=== PATIENT | male | born 1970 | race Caucasian/White ===

== ENCOUNTER 2021-08-19 19:12 | Emergency (ER) | payer OTHER, SELFPAY ==
--- NOTE | 2021-08-19 20:39 | HMH.EDUTC ---
[facility] Disposition Clinical Impression: Low back strain Qualifiers: Encounter type: initial encounter Qualified Code(s): S39.012A - Strain of muscle, fascia and tendon of lower back, initial encounter Low back pain Qualifiers: Chronicity: unspecified Back pain laterality: midline Sciatica presence: with sciatica Sciatica laterality: bilateral sciatica Qualified Code(s): M54.41 - Lumbago with sciatica, right side Degenerative disk disease Qualifiers: Spinal region: lumbar Qualified Code(s): M51.36 - Other intervertebral disc degeneration, lumbar region Disposition: Home, Self-Care Condition on Discharge: Good Instructions: Low Back Pain, DI for Low Back Pain Additional Instructions: Go home and rest. It would be best if you rested tomorrow too. No heavy lifting. No twisting. Take the oral medications as directed. The muscle relaxer (cyclobenzaprine--Flexeril) will make you drowsy, so don't drive or operate heavy machinery after taking it. Don't start the oral steroids (medrol dose pack) until tomorrow, since you had the shots in here today. Follow up with your regular doctor. GO TO THE ER FOR ANY WORSENING SYMPTOMS OR CONCERN, ESPECIALLY BOWEL OR BLADDER ISSUES, SADDLE AREA NUMBNESS, FEVER, ETC Prescriptions: Cyclobenzaprine HCl [Cyclobenzaprine 10mg Tab] 10 mg PO BIDP PRN #20 tab PRN Reason: Muscle Spasm Transmission Status: Received by [facility] methylPREDNISolone [Medrol] 4 mg PO DIRECTED 6 Days #21 packet Transmission Status: Received by [facility] Referrals: Chetan Benoit [Primary Care Provider] - Time of Disposition: 21:05 Medical Decision Making - Medical Records Medical records reviewed: No: I reviewed the patient's medical records. - Dixon Inquiry Pt receiving controlled substance: No Vital Signs: 08/19/21 20:46 08/19/21 21:09 Temperature 98.2 F 98.2 F Temperature Source Oral Pulse Rate 74 Pulse Rate [Left] 74 Respiratory Rate 18 18 Blood Pressure 125/80 Blood Pressure [Right Arm] 125/80 Blood Pressure Mean [Right Arm] 95 02 Sat by Pulse Oximetry 96 Orders (Tests/Meds): ED MEDICATIONS Discontinued Medications Generic Name Dose Route Start Last Admin Trade Name Freq PRN Reason Stop Dose Admin Ketorolac Tromethamine 60 mg 08/19/21 20:49 08/19/21 20:58 Ketorolac 60mg/2ml Vial IM 08/19/21 20:50 60 mg ONCE ONE Administration Methylprednisolone Sodium Succinate 125 mg 08/19/21 20:49 08/19/21 20:59 Methylprednisolone Sod Succ 125mg Vial IM 08/19/21 20:50 125 mg ONCE ONE Administration [facility] HPI - General Stated complaint: back pain Time Seen by Provider: 08/19/21 20:39 - History of Present Illness Provider Complaint: He states that he had to shovel a bunch of snow and ice 4 days ago. Since then he has had low back pain that radiates down both his legs. He has a history of low back pain and degenerative disk disease. He denies any injury, recent falls, recent mva, etc. He denies any bowel or bladder issues. - Related Data Previous Rx's Medication Instructions Recorded Cyclobenzaprine HCl 10 mg PO BIDP PRN #20 tab 08/19/21 [Cyclobenzaprine 10mg Tab] methylPREDNISolone [Medrol] 4 mg PO DIRECTED 6 Days #21 08/19/21 packet Allergies Allergy/AdvReac Type Severity Reaction Status Date / Time No Known Allergies Allergy Verified 08/19/21 20:49 [facility] History - Hepatitis A Screen Attestation statement:: This patient has been screened for Hepatitis A risk factors. I have reviewed the patient's past medical history: Yes ROS Obtained: Yes All systems reviewed & no additional complaints - Constitutional Constitutional: Denies chills, Denies fever(s) - Eyes Eyes: Denies eye discharge - ENT Ears, Nose, Mouth, and Throat: Denies dizziness, Denies otalgia, Denies sore throat - Cardiovascular Cardiovascular: Denies chest pain - Gastrointestinal Gastrointestingal: D
[2021-08-19 20:46] VITALS: BP 125/80; PULSE 74; RESP 18; TEMP 36.8; O2SAT 96; BMI 25.8
[2021-08-19 21:09] VITALS: BP 125/80; PULSE 74; RESP 18; TEMP 36.8
== END 2021-08-19 21:11 | disposition home or self-care (01) ==
LOC: UTC 19:19
PROVIDERS: Emergency Provider Nurse Practitioner Family; PCP Internal Medicine Cardiovascular Disease
DX: S39.012A Strain of muscle, fascia and tendon of lower back, initial encounter (principal); X50.9XXA Other and unspecified overexertion or strenuous movements or postures, initial encounter; M54.41 Lumbago with sciatica, right side
CPT/HCPCS: 96372; 99202; G0463

== ENCOUNTER 2022-11-29 12:45 | Emergency (ER) | payer SELFPAY ==
[2022-11-29 12:45] VITALS: BP 133/87; PULSE 90; RESP 18; TEMP 36.8; O2SAT 98; BMI 25.2
--- NOTE | 2022-11-29 12:56 | EXP.UTC ---
Discharge Plan Disposition Patient Disposition: Home, Self-Care Condition: Good Prescriptions Prescriptions: New methylprednisolone 4 mg Tablets,Dose Pack 4 mg PO DIRECTED Qty: 21 0RF No Action atorvastatin 10 mg tablet 10 mg PO DAILY Label Comments: TAKE 1 TABLET BY MOUTH DAILY. tizanidine 4 mg tablet 4 mg PO TID Label Comments: TAKE 1 TABLET BY MOUTH 3 TIMES DAILY. amlodipine 5 mg tablet 5 mg PO DAILY Label Comments: TAKE 1 TABLET BY MOUTH DAILY. gabapentin 300 mg capsule 300 mg PO TID Label Comments: TAKE 1 CAPSULE BY MOUTH 3 TIMES DAILY. aspirin 81 mg tablet,chewable 1 tab PO DAILY Label Comments: TAKE 1 TABLET BY MOUTH DAILY. lisinopril 5 mg tablet 5 mg PO DAILY Label Comments: TAKE 1 TABLET BY MOUTH DAILY. Referrals Follow up/Referrals: Chetan Benoit [Primary Care Provider] - See instructions Activity Restrictions/Add. Instructions Additional Instructions/Restrictions: Rest the extremity, Elevate the extremity as tolerated while you are resting. Don't start the oral steroids until tomorrow, since you had the shot here today. Follow up with Dr. Marx (podiatry). I put in a referral but you need to call her office and schedule an appointment. Follow up with your regular doctor. GO TO THE ER FOR ANY WORSENING SYMPTOMS Clinical Impressions Clinical Impression: Acute left ankle pain Instructions Patient Instructions: MALISSA Mccain for Gout Discharge ED Provider: Edward Naylor [facility] General Stated complaint: L foot pain, no accident Mode of Arrival: Wheelchair Source of Information: Patient Limitations: No Limitations Time Seen by Provider: 11/29/22 12:56 History of Present Illness Provider Complaint: pt c/o L foot pain, reports no accident. Pt report pain x2 days, states think my gout is acting up . Swelling noted to foot and ankle, small amount of redness noted around L ankle. Pulses + Related Data Home Medications Medication Instructions Recorded Confirmed amlodipine 5 mg tablet 5 mg PO DAILY . 11/29/22 11/29/22 aspirin 81 mg chewable tablet 1 tab PO DAILY . 11/29/22 11/29/22 atorvastatin 10 mg tablet 10 mg PO DAILY . 11/29/22 11/29/22 gabapentin 300 mg capsule 300 mg PO TID . 11/29/22 11/29/22 lisinopril 5 mg tablet 5 mg PO DAILY . 11/29/22 11/29/22 tizanidine 4 mg tablet 4 mg PO TID . 11/29/22 11/29/22 Previous Rx's Medication Instructions Recorded methylprednisolone 4 mg tablets in 4 mg PO DIRECTED #21 tabs 11/29/22 a dose pack Allergies Allergy/AdvReac Type Severity Reaction Status Date / Time No Known Allergies Allergy Verified 11/29/22 13:07 [facility] Disclaimer: The information contained in this section may have been updated after the patient was seen, as this information can be updated by other users. Social History Smoking Status: Former smoker alcohol intake: never current occupational status: employed Travel in the last 8 weeks: None ROS Obtained: Yes All systems reviewed & no additional complaints except as documented Constitutional Constitutional: Denies chills and Denies fever(s) Eyes Eyes: Denies eye discharge ENT Ears, Nose, Mouth, and Throat: Denies dizziness, Denies otalgia and Denies sore throat Cardiovascular Cardiovascular: Denies chest pain Respiratory Respiratory: Denies shortness of breath, Denies chest congestion, Denies cough, Denies stridor and Denies wheezing Gastrointestinal Gastrointestingal: Denies nausea or vomiting Musculoskeletal Musculoskeletal: Reports as per HPI Integumentary/Breasts Skin/Breast: Denies rash Neurologic Neurologic: Denies dizziness and Denies paresthesias Allergic/Immunologic Allergic/Immunologic: Denies wheezing Physical Exam General General appearance: alert and in no apparent distress Head Head exam: atraumatic, normocephalic and no
--- NOTE | 2022-11-29 13:02 | XR_ITS ---
PROCEDURE INFORMATION: Exam: XR Left Foot Exam date and time: 11/29/2022 1:01 PM Age: 52 years old Clinical indication: Pain; Swelling or effusion of joint; Ankle and foot; Left; Additional info: Fall TECHNIQUE: Imaging protocol: Radiologic exam of the left foot. Views: 3 or more views. COMPARISON: CR Ankle L 11/29/2022 12:59 PM FINDINGS: Bones/joints: Osseous structures are intact. No fracture, dislocation or malalignment. 1.5 cm mixed radiolucent sclerotic bone lesion along the medial aspect of the navicular bone. Mild degenerative changes 1st MTP joint with small subchondral cyst. Remaining joint surfaces are preserved. Soft tissues: Normal. IMPRESSION: 1. No acute bony abnormalities. 2. 1.5 cm bone lesion medial aspect navicular bone difficult to further characterize. Recommend either follow-up nonemergent CT exam of the left foot or repeat radiographs in 3-6 months for further surveillance.
--- NOTE | 2022-11-29 13:02 | XR_ITS ---
PROCEDURE INFORMATION: Exam: XR Left Ankle Exam date and time: 11/29/2022 12:59 PM Age: 52 years old Clinical indication: Pain; Swelling or effusion of joint; Ankle and foot; Left; Additional info: Fall TECHNIQUE: Imaging protocol: Radiologic exam of the left ankle. Views: 3 or more views. COMPARISON: No relevant prior studies available. FINDINGS: Bones/joints: Osseous structures and joint surfaces are intact. No fracture or malalignment. Soft tissues: Normal. IMPRESSION: Negative left ankle.
[2022-11-29 13:04] VITALS: BP 150/97; PULSE 95; RESP 18; TEMP 36.8; O2SAT 99; BMI 25.4
[2022-11-29 14:07] VITALS: BP 150/97; PULSE 95; RESP 18; TEMP 36.8; O2SAT 99
== END 2022-11-29 14:06 | disposition home or self-care (01) ==
PROVIDERS: Emergency Provider Nurse Practitioner Family; PCP Internal Medicine Cardiovascular Disease
DX: M25.572 Pain in left ankle and joints of left foot (principal)
CPT/HCPCS: 73610; 73630; 96372; 99212; 99214; G0463

== ENCOUNTER 2024-02-13 16:32 | Observation (INO) | payer MEDICAID, SELFPAY ==
[2024-02-13] VITALS (11 sets, daily range): BP systolic 103–164; BP diastolic 57–98; PULSE 56–92; RESP 11–22; TEMP 36.8–36.9; O2SAT 95–100; BMI 27.2; BMI 27.0
--- NOTE | 2024-02-13 16:32 | ECG_ITS ---
APPROVED REPORT Exam: Resting ECG HR:93 bpm ECG Measurements Heart Rate 93 AXES MS 145 P 67 QRSd 90 QRS 40 QT 337 T 46 QTc 388 Conclusion SINUS RHYTHM NORMAL ECG Electronically signed by : SUZANNE NICHOLAS, 02/14/2024 00:26:08
--- NOTE | 2024-02-13 16:34 | XR_ITS ---
PROCEDURE INFORMATION: Exam: XR Chest Exam date and time: 02/13/2024 4:41 PM Age: 53 years old Clinical indication: Dyspnea; Additional info: Cp, dyspnea TECHNIQUE: Imaging protocol: Radiologic exam of the chest. Views: 1 view. COMPARISON: No relevant prior studies available. FINDINGS: Lungs: No consolidation. Pleural spaces: No pleural effusion. No pneumothorax. Heart/Mediastinum: No cardiomegaly. Calcified atherosclerotic changes of the thoracic aorta. Bones/joints: No acute findings. IMPRESSION: No acute pulmonary findings.
--- NOTE | 2024-02-13 16:36 | ED_ITS ---
Discharge Plan Disposition Patient Disposition: Admitted Chief Complaint: Chest Pain Clinical Impressions Clinical Impression: Angina pectoris, unstable, Acute dyspnea, Hypokalemia Discharge ED Provider: Isiah Burton General Chief Complaint: Chest Pain Stated Complaint: CP Time Seen by Provider: 02/13/24 16:33 History of Present Illness HPI narrative: Patient is a 53-year-old male past medical history of hypertension, no coronary history who presents emergency department for evaluation of chest pain. Onset was acute, 3 hours prior to arrival, substernal while patient was at rest. It is not modifiable, moderate in intensity causing her to present here for continued evaluation. Patient has a cough in the morning every morning that is no different than normal. He is a chronic smoker. No other acute complaints at this time. No surgical history in the chest. Related Data Home Medications ?Medication ?Instructions ?Recorded ?Confirmed amlodipine 5 mg tablet 5 mg PO DAILY . 11/29/22 11/29/22 aspirin 81 mg chewable tablet 1 tab PO DAILY . 11/29/22 11/29/22 atorvastatin 10 mg tablet 10 mg PO DAILY . 11/29/22 11/29/22 gabapentin 300 mg capsule 300 mg PO TID . 11/29/22 11/29/22 lisinopril 5 mg tablet 5 mg PO DAILY . 11/29/22 11/29/22 tizanidine 4 mg tablet 4 mg PO TID . 11/29/22 11/29/22 Previous Rx's ?Medication ?Instructions ?Recorded methylprednisolone 4 mg tablets in 4 mg PO DIRECTED #21 tabs 11/29/22 a dose pack Allergies Allergy/AdvReac Type Severity Reaction Status Date / Time No Known Allergies Allergy Verified 02/13/24 16:47 [facility] Disclaimer: The information contained in this section may have been updated after the patient was seen, as this information can be updated by other users. Social History (Updated 11/29/22 @ 18:35 by Edward Naylor APRN) Smoking Status: Current every day smoker alcohol intake: never current occupational status: employed Travel in the last 8 weeks: None ROS Obtained: Yes Systems reviewed as appropriate & no additional complaints except as documented Physical Exam General General appearance: alert and in no apparent distress Head Head exam: atraumatic and normocephalic Eye Eye exam: Present PERRL and EOMI ENT ENT exam: Present mucous membranes moist Neck Neck exam: Present normal inspection Chest Chest inspection: Present normal inspection and symmetric chest wall rise Respiratory Respiratory exam: Present normal lung sounds bilaterally; Absent respiratory distress Cardiovascular Cardiovascular exam: Present regular rate and normal rhythm Abdominal Exam Abdominal exam: Present soft; Absent tenderness Extremities Exam Extremities exam: Present normal inspection Neurological Exam Neurological exam: Present alert Psychiatric Psychiatric exam: Present normal affect Skin Skin exam: Present warm and dry HEART Score HEART Score HEART Score assessment performed?: Yes History (anamnesis): Highly suspicious ECG: Normal Age: 45-65 years Risk factors: 1-2 risk factors Troponin: </= normal limit HEART Score: 4 Critical Care Critical Care Time Critical Care Time: No Medical Decision Making Dixon Inquiry Pt receiving controlled substance: No Vital Signs Vital Signs: 02/13/24 16:39 02/13/24 17:01 02/13/24 17:30 Temperature 98.5 F Temperature Source Oral Pulse Rate 73 76 Pulse Rate [Left] 92 H Respiratory Rate 14 11 L 11 L Blood Pressure 103/57 L 132/90 Blood Pressure [Right Arm] 164/98 H Blood Pressure Mean [Right Arm] 120 Blood Pressure Source [Right Arm] Automatic Cuff Blood Pressure Position [Right Arm] Sitting 02 Sat by Pulse Oximetry 100 97 97 Oxygen Delivery Method Room Air Room Air Room Air 02/13/24 18:00 02/13/24 18:30 02/13/24 19:00 Temperature Temperature Source Pulse Rate 71 65 68 Pulse Rate [Left] Respiratory Rate 22 15 15 Blood Pressure 124/95 H 138/91 H 145/95 H Blood Pressure [Right Arm] Blood Pressure Mean [Right Arm] Blood Pressure Source [Right Arm] Blood Pressure Position [Right Arm] 02 Sat by Pulse Oximetry 97 97 95 Oxygen Delivery Method Room Air Room Air 02/13/24 19:30 02/13/24 20:00 Temperature Temperature Source Pulse Rate 61 72 Pulse Rate [Left] Respiratory Rate 16 16 Blood Pressure 130/94 H 139/96 H Blood Pressure [Right Arm] Blood Pressure Mean [Right Arm] Blood Pressure Source [Right Arm] Blood Pressure Position [Right Arm] 02 Sat by Pulse Oximetry 95 95 Oxygen Delivery Method Lab Data Labs: Lab Results 02/13/24 16:38: WBC 8.5, RBC 4.68, Hgb 15.4, Hct 46.7, MCV 99.9 H, MCH 32.8 H, MCHC 32.8, RDW 14.0, Plt Count 265, MPV 8.2, Neut % (Auto) 73.9, Lymph % (Auto) 18.2, [place] % (Auto) 2.1, Eos % (Auto) 4.7, Baso % (Auto) 1.1, Neut # (Auto) 6.3, Lymph # (Auto) 1.5, [place] # (Auto) 0.2, Eos # (Auto) 0.4, Baso # (Auto) 0.1, D- Dimer 0.38, Sodium 140, Potassium 3.2 L, Chloride 106, Carbon Dioxide 25, Anion Gap 12.2, BUN 9, Creatinine 0.70, Estimated Creat Clear 147, Estimated GFR 118, Est GFR ( Amer) 142, Glucose 169 H, Calcium 9.1, Total Bilirubin 0.6, AST 34, ALT 29, Alkaline Phosphatase 72, Troponin I < 0.01, NT-Pro-B Natriuret Pep 32.3, Total Protein 6.7, Albumin 3.9, Globulin 2.8, Albumin/Globulin Ratio 1.4 02/13/24 19:35: Troponin I < 0.01 02/13/24 16:38 02/13/24 16:38 Response Orders (Tests/Meds): ED MEDICATIONS Generic Name Dose Route Start Last Admin Trade Name Freq PRN Reason Stop Dose Admin Nitroglycerin 0.4 mg 02/13/24 16:34 02/13/24 16:50 Nitroglycerin 0.4mg Sl Tablet SL 03/14/24 16:33 0.4 mg Q5MINP PRN Administration Chest Pain Discontinued Medications Generic Name Dose Route Start Last Admin Trade Name Freq PRN Reason Stop Dose Admin Aspirin 324 mg 02/13/24 16:34 02/13/24 16:50 Aspirin 81mg Chewable Tablet PO 02/13/24 16:35 324 mg ONCE ONE Administration Belladonna Alkaloids 60 ml 02/13/24 16:34 02/13/24 16:50 Belladonna Alkaloids 60 Ml Ml PO 02/13/24 16:35 60 ml ONCE ONE Administration Morphine Sulfate 4 mg 02/13/24 16:34 02/13/24 16:50 Morphine 4mg/Ml Syringe IV 02/13/24 16:35 4 mg ONCE ONE Administration Morphine Sulfate 4 mg 02/13/24 19:42 02/13/24 19:47 Morphine 4mg/Ml Syringe IV 02/13/24 19:43 4 mg ONCE ONE Administration Potassium Chloride 40 meq 02/13/24 17:10 02/13/24 17:13 Potassium Chloride 20meq Tab PO 02/13/24 17:11 40 meq ONCE ONE Administration ORDERS Category Date Time Status CXR --portable [XR chest portable] Stat Exams 02/13/24 16:34 Completed BNP [NT Pro Brain Natriuretic Pep.] Stat Lab 02/13/24 16:38 Completed CBC w/Auto Diff [Complete Blood Count Auto Diff] Stat Lab 02/13/24 16:38 Completed CMP [Comprehensive Metabolic Panel] Stat Lab 02/13/24 16:38 Completed D-Dimer Stat Lab 02/13/24 16:38 Completed Trop I [Troponin I] Stat Lab 02/13/24 16:38 Completed Troponin I Q3H Lab 02/13/24 19:35 Completed Troponin I Q3H Lab 02/13/24 22:45 Ordered ECG Data Tracing #1: ECG Narrative: Independently interpreted by me rate is 93, rhythm is regular, axis is normal, no ST elevation in anatomical contiguous leads, QTc 388. MDM Narrative Medical Decision Narrative: In summary patient is a 53-year-old male with past medical history described above who presents emergency department for evaluation of chest pain. Patient is hemodynamically stable nontoxic-appearing upon arrival, afebrile. Differential diagnosis includes ACS, noncardiac chest pain, pulmonary embolism, aortic dissection, among others. Workup will be conducted with hematologic labs, chest x-ray, EKG, troponin, D-dimer. Initial inventions include aspirin, morphine, nitroglycerin, GI cocktail. Hematologic labs reviewed by me, no leukocytosis or anemia, D-dimer excludes pulmonary embolism and low risk aortic dissection, there is some mild hypokalemia which will be repleted orally. Chest x-ray informally interpreted by me, no acute lobar opacities or large pneumothorax, no significant cephalization of vessels. Formal read shows no acute pathology. Initial troponin undetectably low. Upon repeat evaluation patient had worsening chest pain although serial troponins are undetectably low patient has unstable angina and will benefit from admission and cardiology input. Case discussed with hospital medicine regarding management patient be admitted to their service for continued evaluation at this time.
[2024-02-13 16:48] LABS: Basophils # 0.1 K/mm3 (0-0.2); Basophils % 1.1 % (0.1-2.0); Eosinophils # 0.4 K/mm3 (0.0-0.4); Eosinophils % 4.7 % (0.1-12.0); Hematocrit 46.7 % (42.0-52.0); Hemoglobin 15.4 g/dL (14.1-18.0); Lymphocytes # 1.5 K/mm3 (0.7-4.5); Lymphocytes % 18.2 % (10-50); Mean Corpuscular HGB Conc 32.8 g/dL (31.8-35.4); Mean Corpuscular Hemoglobin 32.8 pg (27.0-31.2); Mean Corpuscular Volume 99.9 fl (80-94); Mean Platelet Volume 8.2 fl (7.4-10.4); Monocytes # 0.2 K/mm3 (0.1-1.0); Monocytes % 2.1 % (1.7-9.3); Neutrophils # 6.3 K/mm3 (1.8-7.8); Neutrophils % 73.9 % (37.0-80.0); Platelet Count 265 K/mm3 (142-424); Red Blood Count 4.68 M/mm3 (4.60-6.20); White Blood Count 8.5 K/mm3 (4.8-10.8)
[2024-02-13] MEDS: ASPIRIN 81MG CHEWABLE TABLET 324 MG PO (16:50)
[2024-02-13] MEDS: BELLADONNA ALKALOIDS 60 ML ML PO (16:50)
[2024-02-13] MEDS: MORPHINE 4MG/ML SYRINGE 4 MG IV ×2 (16:50→19:47)
[2024-02-13] MEDS: NITROGLYCERIN 0.4MG SL TABLET 0.4 MG SL ×2 (16:50→22:18)
--- OUTSIDE RECORDS SUMMARY | 2024-02-13 16:51 | XMS_ITS | Continuity of Care Document ---
Author Organization [facility] Address [address] [place] [address] Phone Care Team Providers Care Senior Tax Accountant Name Role Phone Anrde Max MD Unavailable Unavailable Allergies, Adverse Reactions, Alerts Substance Reaction Status Criticality codeine Active No Information Medications Medication Instructions Dosage Effective Dates (start - stop) Status Comments ADVIL (unknown strength) use as directed Not Available - Active Procedures Procedure Date OFFICE CONSULTATION Advance Directives Directive Yes / No Effective Date File Name Resuscitation Not Answered N/A N/A Life Support Not Answered N/A N/A Intubation Not Answered N/A N/A Antibiotics Not Answered N/A N/A IV Fluid Support Not Answered N/A N/A Tube Feed Not Answered N/A N/A Other Directive N/A N/A WARNING:The information contained in this section is historical and is provided for information only and does not constitute a legal document or any assurance that the information is still accurate. Please verify the information with the boyce of the legal document before using it for clinical purposes. Encounters Encounter Description Practice Location Reason(s) For Visit Diagnoses Date Provider Providers Copied on Encounter OFFICE CONSULTATION [facility], [address] [place], [address], tel:[phone] [facility] [address] [place] [place], [place], [id number]. tel:[phone] Referring Provider: Zhao Romero, [address] [facility] [address], [place], [address]. tel:[phone] Family History Family Member Type Diagnosis Age At Onset Multiple Problem (finding) HBP Payers Payer name Insurance type Covered libertarian ID Authoriza tion(s) [employer] [id number] Social History Type Description Quantity Date Captured Comments Alcohol Use Details No Caffeine Use Details Unknown Tobacco Use Status No Information Smoking Status Current every day smoker Smoking Tobacco Use Details Cigarette: No Details Available Cigarette: No Details Available Sex Male Chief Complaint And Reason For Visit No Information Reason For Referral Reason For Referral No Information History Of Present Illness Encounter Date Complaint History Of Prese nt Illness No Information Functional Status Date Functional Assessmen t No Information Instructions Date Instruction Additional Infor mation - Return in PRN Related to See i mpression: general plan - [facility] - retrobulbar with white matter changes on mri. improving nicely at this point. recommended systemic neurologic evaluation. Related to See impression: general plan - [facility] - Educational materials provided:Primary Diagnosis. Related to See impression: general plan Assessments Type Assessment Date No Information Patient Care Teams Name Effective Dates (start - stop) Status Members No Information
[2024-02-13 16:55] LABS: Alanine Aminotransferase 29 U/L (12-78); Albumin Level 3.9 g/dl (3.5-5.0); Albumin/Globulin Ratio 1.4 (1.1-1.8); Alkaline Phosphatase 72 U/L (38-126); Anion Gap 12.2 mEq/L (5-15); Aspartate Amino Transferase 34 U/L (17-59); Bilirubin,Total 0.6 mg/dl (0.2-1.3); Blood Urea Nitrogen 9 mg/dl (9-20); Calcium 9.1 mg/dl (8.4-10.2); Carbon Dioxide 25 mmol/L (22.0-30.0); Chloride 106 mmol/L (98-107); Creatinine Clearance Estimated 147 mL/min (50-200); Estimated Glomerular Filt Rate 118 ml/min (>60); GFR (African American) 142 ML/MIN (>60); Globulin 2.8 g/dL (1.3-3.2); Glucose 169 mg/dl (74-100); Potassium 3.2 mmoL/L (3.5-5.1); Sodium 140 mmol/L (136-145); Total Protein,Serum 6.7 g/dl (6.3-8.2)
[2024-02-13 16:58] LABS: D-Dimer 0.38 ug/mL (0.0-0.5)
[2024-02-13] MEDS: POTASSIUM CHLORIDE 20MEQ TAB 40 MEQ PO (17:13)
[2024-02-13 17:23] LABS: Troponin I < 0.01 ng/ml (0.00-0.034)
--- NOTE | 2024-02-13 18:00 | PC.NURSE ---
Rounded on pt. Pt voiced no needs. Call light within reach.
[2024-02-13 19:25] LABS: NT Pro Brain Natriuretic Pep. 32.3 pg/mL (0-125)
--- NOTE | 2024-02-13 20:02 | PC.NURSE ---
House notified for admission
[2024-02-13 20:03] LABS: Troponin I < 0.01 ng/ml (0.00-0.034)
--- NOTE | 2024-02-13 20:26 | PC.NURSE ---
Patient arrived to floor via wheelchair from ED at 20:22.
--- NOTE | 2024-02-13 20:31 | P.HP_ITS ---
History of Present Illness *Admission Date: 02/13/24 *Reason for visit:: Onset of worsening shortness of air, and mid sternal chest pain *History of present illness: This 53-year-old male who is a longtime smoker of more than 40 years. Also noted for disability due to spinal pain neck and lower back using a cane to ambulate. Had been experiencing shortness of air over the last couple months that is getting worse. He notes that if he has a fan on in his face he does feel better but now it is not working. Also midsternal chest pain like a burning that goes down both arms tingling. Patient noted his primary care is Dr. Yao and [facility] Disclaimer: The information contained in this section may have been updated after the patient was seen, as this information can be updated by other users. Medical History History of back pain Hyperlipidemia Hypertension Social History Smoking Status: Current every day smoker smoking status start date: 1983 smoked: 39 quit status: not considering quitting alcohol intake: never substance use type: denies use current occupational status: unemployed and disabled Travel in the last 8 weeks: None household members: significant other marital status: life partner service: No [place] [facility]: No caffeine: Yes physical activity: walking Review of Systems Constitutional Constitutional: Reports as per HPI Comments: Patient states that just the increase in the shortness of air with now having the chest pain is what brought him in to be evaluated Eyes Eyes: Reports system reviewed and no additional complaints, except as documented ENT Ears, Nose, Mouth, and Throat: Reports system reviewed and no additional complaints, except as documented and Reports neck pain (Chronic neck pain) *Cardiovascular Cardiovascular: Reports as per HPI, Reports chest pain, Reports chest pain at rest, Reports chest pain with activity, Reports dyspnea and Reports dyspnea on exertion *Respiratory Respiratory: Reports system reviewed and no additional complaints, except as documented, Reports dyspnea and Reports dyspnea on exertion *Gastrointestinal Gastrointestinal: Reports system reviewed and no additional complaints, except as documented *Genitourinary Genitourinary: Reports system reviewed and no additional complaints, except as documented Comments: Denies any issues with bowels or bladder *Musculoskeletal Musculoskeletal: Reports as per HPI, Reports back pain (Chronic back pain) and Reports neck pain (Chronic neck pain) Integumentary/Breasts Skin/Breast: Reports system reviewed and no additional complaints, except as documented *Neurologic Neurologic: Reports system reviewed and no additional complaints, except as documented Psychiatric Psychiatric: Reports system reviewed and no additional complaints, except as documented and Reports as per HPI Comments: Patient is very sociable he denies any problems with mental health issues. And is a very good historian Endocrine Endocrine: Reports system reviewed and no additional complaints, except as documented Hematologic/Lymphatic Hematologic/Lymphatic: Reports system reviewed and no additional complaints, except as documented Allergic/Immunologic Allergic/Immunologic: Reports system reviewed and no additional complaints, except as documented Meds Home Medications and Allergies Home Medications ?Medication ?Instructions ?Recorded ?Confirmed ?Type amlodipine 5 mg tablet 5 mg PO DAILY 11/29/22 02/14/24 History aspirin 81 mg chewable tablet 81 mg PO DAILY 11/29/22 02/14/24 History gabapentin 300 mg capsule 300 mg PO TID 11/29/22 02/14/24 History atorvastatin 40 mg tablet 40 mg PO HS #30 tabs 02/14/24 Rx famotidine 20 mg tablet 20 mg PO DAILY 30 days #30 tabs 02/14/24 Rx lisinopril 20 mg tablet 20 mg PO DAILY #30 tabs 02/14/24 Rx New Prescriptions to Start Prescriptions: Edward Davis famotidine Edwadr Caputo lisinopril Edward Caputo Allergies Allergy/AdvReac Type Severity Reaction Status Date / Time No Known Allergies Allergy Verified 02/13/24 16:47 Exam Data for Last 24 hours Vital signs and Labs for Last 24 Hours: Temp Pulse Resp BP Pulse Ox O2 Del Method 98.2 F 73 19 136/96 H 95 Room Air 02/13/24 20:19 02/13/24 20:19 02/13/24 20:19 02/13/24 20:19 02/13/24 20:00 02/13/24 20:19 Laboratory Results - last 24 hr 02/13/24 16:38: WBC 8.5, RBC 4.68, Hgb 15.4, Hct 46.7, MCV 99.9 H, MCH 32.8 H, MCHC 32.8, RDW 14.0, Plt Count 265, MPV 8.2, Neut % (Auto) 73.9, Lymph % (Auto) 18.2, [place] % (Auto) 2.1, Eos % (Auto) 4.7, Baso % (Auto) 1.1, Neut # (Auto) 6.3, Lymph # (Auto) 1.5, [place] # (Auto) 0.2, Eos # (Auto) 0.4, Baso # (Auto) 0.1, D- Dimer 0.38, Sodium 140, Potassium 3.2 L, Chloride 106, Carbon Dioxide 25, Anion Gap 12.2, BUN 9, Creatinine 0.70, Estimated Creat Clear 147, Estimated GFR 118, Est GFR ( Amer) 142, Glucose 169 H, Calcium 9.1, Total Bilirubin 0.6, AST 34, ALT 29, Alkaline Phosphatase 72, Troponin I < 0.01, NT-Pro-B Natriuret Pep 32.3, Total Protein 6.7, Albumin 3.9, Globulin 2.8, Albumin/Globulin Ratio 1.4 02/13/24 19:35: Troponin I < 0.01 I & O for Last 24 hours: Intake & Output 02/10/24 02/11/24 02/12/24 02/13/24 23:59 23:59 23:59 23:59 Weight 86.183 kg Radiology Reports for the Last 24 Hours: Reviewe chest x-ray, no acute findings Constitutional Constitutional: no acute distress and obese Comments: Very pleasant patient to talk to. Forthcoming with history, in no acute distress at this point in time. *Routine HEENT Exam Head: Present normocephalic and atraumatic Eye: Present EOMI and PERRL ENT: Present mucous membranes moist *Routine Neck Exam Neck: Present supple Routine Chest/Breast/Axilla Exam Comments: No tenderness or discomfort found upon evaluation of chest *Routine Respiratory Exam Respiratory: Present normal respiratory effort Comments: Patient is a 40-year smoker but the lungs were completely clear with normal chest shape equal expansion both sides no abnormal breath sounds heard *Routine Cardiovascular Exam Cardiovascular: Present RRR, Normal S1 and Normal S2 *Routine Abdominal Exam Abdominal: Present soft and normoactive bowel sounds *Routine Rectal Exam Rectal:: deferred *Routine Genitalia Exam Genitalia:: deferred *Routine Extremities Exam Extremities: Present full ROM, pulses intact and normal capillary refill Routine Back/Spine/Pelvis Exam Back/Spine: Present full ROM and paraspinal tenderness (Chronic neck and lower back pain, ) *Routine Skin Exam Skin: Present intact, dry, warm and normal turgor *Routine Neurological Exam Neurological: Present alert, oriented X3, CN II-XII intact and normal reflexes Comments: Uses cane to ambulate but if this is related to his chronic back pain Routine Psychiatric Exam Psychiatric: Present normal affect, normal thought process, cooperative, good insight and good judgment H&P: Result Impressions 1. Recent onset of chest pain, need to rule out coronary artery disease related to inactivity and long-term smoking 2. Midsternal chest pain recent onset, to rule out acute versus past FL and have a cardiology consult Imaging and Cardiology Chest x-ray: Status: image reviewed by me Additional comments: No acute finding on chest x-ray heart of normal size Assessment and Plan *Assessment and plan (1) Acute dyspnea: Status: Acute Category: Medical Code(s): R06.00 - Dyspnea, unspecified (2) Angina pectoris, unstable: Status: Acute Category: Medical Code(s): I20.0 - Unstable angina (3) Degenerative disk disease: Status: Acute Qualifiers: Spinal region: lumbar Qualified Code(s): M51.36 - Other intervertebral disc degeneration, lumbar region Category: Medical (4) Low back pain: Status: Acute Qualifiers: Back pain laterality: midline Chronicity: unspecified Sciatica laterality: bilateral sciatica Sciatica presence: with sciatica Qualified Code (s): M54.41 - Lumbago with sciatica, right side; M54.42 - Lumbago with sciatica, left side Category: Medical Code(s): M54.50 - Low back pain, unspecified (5) Hypokalemia: Status: Acute Category: Medical Code(s): E87.6 - Hypokalemia Plan 53-year-old male with hypertension, tobacco use disorder, presented with chest pain. Case discussed with ER physician, request admission for cardiology eval and further workup. Medicine agreed to admit. Serial troponins negative. Cardiology to evaluate in the morning. Problems addressed as follows: Angina Dyspnea with exertion Hypertension -Chest pain resolved overnight. Serial troponins negative. EKG with no ST changes. -Continue home regimen of amlodipine 5 mg daily, aspirin 81 mg daily, Lipitor 40 mg nightly, lisinopril 5 mg daily. -Monitor for improvement in blood pressure control. -Cardiology to evaluate the patient in the morning. Shortness of air: Patient is a 39-year-old smoker with no plans to stop, he uses a cane to get around so activity is limited due to his chronic back pain, he noted that this is started several months ago and is slowly getting worse. Presently on room air at 95% but will have nasal cannula available if saturations decreased before below 92 and or respiratory symptoms develop. Chronic back pain: Patient takes naproxen at home I will continue him on his own medication as this seems to be helping him., Will confirm with nursing which home medicines he is taking on a regular basis and continue them as able. Tobacco abuse, counseling done on hazards of smoking, patient has no plans to stop smoking Hypokalemia, will monitor labs while here also replace potassium by p.o. Rounded on patient after nurse practitioner. Personally examined and interviewed patient. Agree with exam findings and care plan as documented.
[2024-02-13] MEDS: HEPARIN SODIUM 5,000 UNIT/ML VIAL 5000 UNIT SQ (22:17)
[2024-02-13] MEDS: FAMOTIDINE 20MG TABLET 20 MG PO (22:17)
[2024-02-13] MEDS: NICOTINE 21MG/24HR PATCH 21 MG TD (22:18)
[2024-02-13] MEDS: POTASSIUM CHLORIDE 20MEQ TAB 20 MEQ PO (22:18)
[2024-02-13 23:13] LABS: Troponin I < 0.01 ng/ml (0.00-0.034)
[2024-02-14] VITALS: BP 118/69; PULSE 53; PULSE 59; RESP 16; TEMP 36.4; O2SAT 94
[2024-02-14 04:00] VITALS: BP 108/65; PULSE 50; PULSE 62; RESP 16; TEMP 36.5; O2SAT 94; BMI 27.0
[2024-02-14] MEDS: HEPARIN SODIUM 5,000 UNIT/ML VIAL 5000 UNIT SQ ×2 (04:53→13:22)
--- NOTE | 2024-02-14 05:13 | PC.NURSE ---
Patient is A&OX4 and tolerating room air. Lung sounds clear throughout and bowel sounds in all quadrants. Pt complained of chest pain once this shift and was given one nitro tablet. He stated relief of pain shortly after taking. He has not complained of any pain since. He has no complaints at this time, call light within reach.
[2024-02-14] MEDS: NAPROXEN 500MG TABLET 500 MG PO (06:55)
--- NOTE | 2024-02-14 07:25 | HMH.PHAINT1 ---
Pharmacy Intervention Comments: home medication list verified using list from outpatient pharmacy and pt interview
[2024-02-14 08:00] VITALS: BP 153/80; PULSE 60; PULSE 64; RESP 18; TEMP 36.6; O2SAT 99
[2024-02-14] MEDS: FAMOTIDINE 20MG TABLET 20 MG PO (08:06)
[2024-02-14] MEDS: POTASSIUM CHLORIDE 20MEQ TAB 20 MEQ PO (08:06)
[2024-02-14 08:36] LABS: Basophils # 0.1 K/mm3 (0-0.2); Basophils % 1.4 % (0.1-2.0); Eosinophils # 0.3 K/mm3 (0.0-0.4); Eosinophils % 4.3 % (0.1-12.0); Hematocrit 48.3 % (42.0-52.0); Lymphocytes # 1.4 K/mm3 (0.7-4.5); Lymphocytes % 19.7 % (10-50); Mean Corpuscular Hemoglobin 32.5 pg (27.0-31.2); Mean Corpuscular Volume 104.9 fl (80-94); Mean Platelet Volume 8.7 fl (7.4-10.4); Monocytes # 0.3 K/mm3 (0.1-1.0); Monocytes % 4.4 % (1.7-9.3); Neutrophils # 4.9 K/mm3 (1.8-7.8); Neutrophils % 70.3 % (37.0-80.0); Platelet Count 259 K/mm3 (142-424); Red Blood Count 4.61 M/mm3 (4.60-6.20); White Blood Count 6.9 K/mm3 (4.8-10.8)
[2024-02-14 08:49] LABS: Alanine Aminotransferase 22 U/L (12-78); Albumin Level 3.5 g/dl (3.5-5.0); Albumin/Globulin Ratio 1.3 (1.1-1.8); Alkaline Phosphatase 83 U/L (38-126); Anion Gap 10.2 mEq/L (5-15); Aspartate Amino Transferase 33 U/L (17-59); Bilirubin,Total 0.5 mg/dl (0.2-1.3); Blood Urea Nitrogen 13 mg/dl (9-20); Calcium 8.9 mg/dl (8.4-10.2); Carbon Dioxide 27 mmol/L (22.0-30.0); Chloride 106 mmol/L (98-107); Creatinine Clearance Estimated 102 mL/min (50-200); Estimated Glomerular Filt Rate 78 ml/min (>60); GFR (African American) 94 ML/MIN (>60); Globulin 2.7 g/dL (1.3-3.2); Glucose 140 mg/dl (74-100); Magnesium 2.1 mg/dl (1.6-2.3); Potassium 4.2 mmoL/L (3.5-5.1); Sodium 139 mmol/L (136-145); Total Protein,Serum 6.2 g/dl (6.3-8.2)
--- NOTE | 2024-02-14 10:37 | CA_ITS ---
APPROVED REPORT EXAM: Comprehensive 2D, Doppler, and color-flow Echocardiogram Steel Crane Operator: Michelle Chaudhry CRT Ht: 5 ft 10 in Wt: 188lbs BSA: 2.03 BP: 153/80 mmHg Indications: Chest Pain, Shortness of Breath, Hyperlipidemia, Hypertension/HDD, smoker 2D Dimensions LA Volume 24.20 mL LA Volume Index 11.60 mL/m2 (M/F) 16-34 M-Mode Dimensions RVDd 3.43 cm (0.9-2.6) LA Diam 3.10 cm (1.9-4.0) LVDd 4.82 cm (3.5-5.7) LVDs 3.03 cm (3.5-5.7) IVSd 1.14 cm (0.6-1.1) PWd 0.54 cm (0.6-1.1) EF (Teich) 66.90% FS 37.10% EDV (Teich) 108.60 mL TAPSE 2.30 (<1.7) ESV (Teich) 35.90 mL LV Diastology E Decel Time 130 (160-240 msec) E/A Ratio 1.10 MED A' 10.80 cm/s LAT A' 9.20 cm/s Aortic Valve AO Peak GR. 7.40 mmHg Mitral Valve MV E Max Rafa. 79.0 (40-130 cm/s) MV A Velocity 72.0 (40-130 cm/s) E/A Ratio 1.10 MV PHT 38.0 ms Pulmonary Valve PV Peak Velocity 130.0 (50-150 cm/s) Tricuspid Valve TR P. Velocity 239.00 cm/s RAP Estimate 10.00 mmHg RVSP 32.90 mmHg Left Ventricle The left ventricle is normal size. The left ventricular systolic function is mildly reduced. There is normal left ventricular wall thickness. There is mild global hypokinesis present. Grade 1 diastolic dysfunction is present. LVEF is 45% Right Ventricle The right ventricle is normal size. The right ventricular systolic function is normal. Atria The left atrium size is normal. The right atrium size is normal. There is no Doppler evidence of interatrial shunt. Aortic Valve The aortic valve opens well. There is no aortic valvular stenosis. No aortic regurgitation is present. Mitral Valve The mitral valve is normal in structure. No evidence of mitral valve stenosis. Mild mitral regurgitation. Tricuspid Valve The tricuspid valve leaflets are thin and pliable. Mild tricuspid regurgitation. RVSP is 20-25 mmHg. Pulmonic Valve The pulmonary valve is normal in structure. Trace pulmonic regurgitation. Great Vessels The aortic root is normal in size. The ascending aorta is normal in size. IVC is normal in size and collapses >50% with inspiration. Pericardium There is no pericardial effusion. Other Information Study Quality: Technically Difficult Conclusion Technically difficult study due to poor acoustic windows. Mild reduction in LV systolic function (LVEF 45%). Mild MR, mild TR. RVSP 20-25 mmHg. Electronically signed by : Claudia De Santiago MD 02/15/2024 00:27:43
--- NOTE | 2024-02-14 10:38 | EXP.CARD.CON ---
History of Present Illness History of Present Illness Consult date: 02/14/24 Requesting physician: Edward Caputo Consult reason: chest pain Chief complaint: SOA, CP History of present illness: *53-year-old white male without known cardiovascular disease but history of [id number] tobacco use, hypertension, hyperlipidemia. Presented to the ER complaining of 2 months worsening dyspnea on exertion associated with coughing and wheezing, typically feels better with a fan in his face, worse with exertion like walking flat ground. On the day of arrival a fan did not help and he felt some mild associated chest discomfort. He is a poor historian. In the ER he had negative troponin x 2, negative D-dimer, negative chest x-ray, negative labs vitals and EKG showed sinus rhythm without ectopy. He was kept overnight for observation. This morning states his shortness of breath is slightly improved. It is severe at home. Of note he also ambulates with a cane due to chronic back issues. He denies family history of heart disease. [facility] Disclaimer: The information contained in this section may have been updated after the patient was seen, as this information can be updated by other users. Medical History History of back pain Hyperlipidemia Hypertension Social History Smoking Status: Current every day smoker smoking status start date: 1983 smoked: 39 quit status: not considering quitting Tobacco counseling given: provider counseling and counseling >3 minutes alcohol intake: never substance use type: denies use current occupational status: unemployed and disabled Travel in the last 8 weeks: None household members: significant other marital status: life partner service: No penitentiary: No caffeine: Yes physical activity: walking additional social history: Due to chronic back and neck pain uses a cane to ambulate Review of Systems Constitutional Constitutional: Denies fatigue and Reports weakness Eyes Eyes: Denies loss of vision ENT Ears, Nose, Mouth, and Throat: Denies hearing loss *Cardiovascular Cardiovascular: Denies chest pain and Reports dyspnea *Respiratory Respiratory: Denies cough and Reports dyspnea *Gastrointestinal Gastrointestinal: Denies change in stool character, Denies nausea and Denies vomiting *Genitourinary Genitourinary: Denies difficulty urinating *Musculoskeletal Musculoskeletal: Denies muscle weakness Integumentary/Breasts Skin/Breast: Denies changing lesions *Neurologic Neurologic: Reports system reviewed and no additional complaints, except as documented, Denies loss of vision and Reports weakness Endocrine Endocrine: Denies fatigue Exam Data for Last 24 hours Vital signs and Labs for Last 24 Hours: Temp Pulse Resp BP Pulse Ox O2 Del Method 97.9 F 64 18 153/80 H 99 Room Air 02/14/24 08:00 02/14/24 08:00 02/14/24 08:00 02/14/24 08:00 02/14/24 08:00 02/14/24 09:00 Laboratory Results - last 24 hr 02/13/24 16:38: WBC 8.5, RBC 4.68, Hgb 15.4, Hct 46.7, MCV 99.9 H, MCH 32.8 H, MCHC 32.8, RDW 14.0, Plt Count 265, MPV 8.2, Neut % (Auto) 73.9, Lymph % (Auto) 18.2, [place] % (Auto) 2.1, Eos % (Auto) 4.7, Baso % (Auto) 1.1, Neut # (Auto) 6.3, Lymph # (Auto) 1.5, [place] # (Auto) 0.2, Eos # (Auto) 0.4, Baso # (Auto) 0.1, D-Dimer 0.38, Sodium 140, Potassium 3.2 L, Chloride 106, Carbon Dioxide 25, Anion Gap 12.2, BUN 9, Creatinine 0.70, Estimated Creat Clear 147, Estimated GFR 118, Est GFR ( Amer) 142, Glucose 169 H, Calcium 9.1, Total Bilirubin 0.6, AST 34, ALT 29, Alkaline Phosphatase 72, Troponin I < 0.01, NT-Pro-B Natriuret Pep 32.3, Total Protein 6.7, Albumin 3.9, Globulin 2.8, Albumin/Globulin Ratio 1.4 02/13/24 19:35: Troponin I < 0.01 02/13/24 22:40: Troponin I < 0.01 02/14/24 08:04: WBC 6.9, RBC 4.61, Hgb 15.0, Hct 48.3, MCV 104.9 H, MCH 32.5 H, MCHC 31.0 L, RDW 14.0, Plt Count 259, MPV 8.7, Neut % (Auto) 70.3, Lymph % (Auto) 19.7, [place] % (Auto) 4.4, Eos % (Auto) 4.3, Baso % (Auto) 1.4, Neut # (Auto) 4.9, Lymph # (Auto) 1.4, [place] # (Auto) 0.3, Eos # (Auto) 0.3, Baso # (Auto) 0.1, Sodium 139, Potassium 4.2 D, Chloride 106, Carbon Dioxide 27, Anion Gap 10.2, BUN 13 D, Creatinine 1.00 D, Estimated Creat Clear 102, Estimated GFR 78, Est GFR ( Amer) 94 D, Glucose 140 H, Calcium 8.9, Magnesium 2.1, Total Bilirubin 0.5, AST 33, ALT 22, Alkaline Phosphatase 83, Total Protein 6.2 L, Albumin 3.5 D, Globulin 2.7, Albumin/Globulin Ratio 1.3 I & O for Last 24 hours: Intake & Output 02/11/24 02/12/24 02/13/24 02/14/24 23:59 23:59 23:59 23:59 Intake Total 600 / 600 Output Total 0 / 0 Balance 0 / 150 600 / 600 Weight 188 lb 12.8 oz 188 lb 12.8 oz Meds Home Medications and Allergies Home Medications ?Medication ?Instructions ?Recorded ?Confirmed ?Type amlodipine 5 mg tablet 5 mg PO DAILY 11/29/22 02/14/24 History aspirin 81 mg chewable tablet 81 mg PO DAILY 11/29/22 02/14/24 History atorvastatin 10 mg tablet 10 mg PO DAILY 11/29/22 02/13/24 History gabapentin 300 mg capsule 300 mg PO TID 11/29/22 02/14/24 History lisinopril 5 mg tablet 5 mg PO DAILY 11/29/22 02/13/24 History New Prescriptions to Start Prescriptions: Allergies Allergy/AdvReac Type Severity Reaction Status Date / Time No Known Allergies Allergy Verified 02/13/24 16:47 Assessment and Plan *Assessment and plan (1) Dyspnea on exertion: Status: Acute Category: Medical Code(s): R06.09 - Other forms of dyspnea (2) Angina pectoris, unstable: Status: Acute Category: Medical Code(s): I20.0 - Unstable angina Plan Dyspnea on exertion - likely COPD Exacerbation - lungs are clear today - recommend Duo-neb and outpatient evaluation - he has anginal equivalent symptoms and pos CV risk factors, I'll check 2D ECHO Htn - well controlled - cont home dose Amlodipine, lisinopril HLD - cont statin and ASA Tob use - 40 pack years - recommend complete cessation CV summary: Pt appears well on exam but reports significant SOA. Will check 2D ECHO - futher plans pending results.
[2024-02-14 12:00] VITALS: PULSE 60
--- NOTE | 2024-02-14 15:00 | P.DS_ITS ---
General Admission date:: 02/13/24 Discharge date: 02/14/24 HPI HPI HPI: This 53-year-old male who is a longtime smoker of more than 40 years. Also noted for disability due to spinal pain neck and lower back using a cane to ambulate. Had been experiencing shortness of air over the last couple months that is getting worse. He notes that if he has a fan on in his face he does feel better but now it is not working. Also midsternal chest pain like a burning that goes down both arms tingling. Patient noted his primary care is Dr. Yao and [facility] Course Hospital Course Hospital Course: 53-year-old male with history of tobacco use disorder. Presented with chest pain. Serial troponins negative. Echo obtained showing EF 45%. Stable on room air. Chest x-ray negative. Labs in the morning normal. Discussed case with cardiology, they consulted on patient. Recommend continuing home medications for blood pressure as his blood pressure is well controlled at this time. Would benefit from further eval as an outpatient. Stable to discharge home with close follow-up with cardiology for further management. Shortness of breath improved with DuoNeb. Total time spent on discharge 32 minutes in counseling, documentation, chart review, and direct care with patient. Exam Data for Last 24 hours Vital signs and Labs for Last 24 Hours: Temp Pulse Resp BP Pulse Ox O2 Del Method 97.9 F 64 18 153/80 H 99 Room Air 02/14/24 08:00 02/14/24 08:00 02/14/24 08:00 02/14/24 08:00 02/14/24 08:00 02/14/24 11:00 Laboratory Results - last 24 hr 02/13/24 16:38: WBC 8.5, RBC 4.68, Hgb 15.4, Hct 46.7, MCV 99.9 H, MCH 32.8 H, MCHC 32.8, RDW 14.0, Plt Count 265, MPV 8.2, Neut % (Auto) 73.9, Lymph % (Auto) 18.2, [place] % (Auto) 2.1, Eos % (Auto) 4.7, Baso % (Auto) 1.1, Neut # (Auto) 6.3, Lymph # (Auto) 1.5, [place] # (Auto) 0.2, Eos # (Auto) 0.4, Baso # (Auto) 0.1, D- Dimer 0.38, Sodium 140, Potassium 3.2 L, Chloride 106, Carbon Dioxide 25, Anion Gap 12.2, BUN 9, Creatinine 0.70, Estimated Creat Clear 147, Estimated GFR 118, Est GFR ( Amer) 142, Glucose 169 H, Calcium 9.1, Total Bilirubin 0.6, AST 34, ALT 29, Alkaline Phosphatase 72, Troponin I < 0.01, NT-Pro-B Natriuret Pep 32.3, Total Protein 6.7, Albumin 3.9, Globulin 2.8, Albumin/Globulin Ratio 1.4 02/13/24 19:35: Troponin I < 0.01 02/13/24 22:40: Troponin I < 0.01 02/14/24 08:04: WBC 6.9, RBC 4.61, Hgb 15.0, Hct 48.3, MCV 104.9 H, MCH 32.5 H, MCHC 31.0 L, RDW 14.0, Plt Count 259, MPV 8.7, Neut % (Auto) 70.3, Lymph % ( Auto) 19.7, [place] % (Auto) 4.4, Eos % (Auto) 4.3, Baso % (Auto) 1.4, Neut # (Auto) 4.9, Lymph # (Auto) 1.4, [place] # (Auto) 0.3, Eos # (Auto) 0.3, Baso # (Auto) 0.1, Sodium 139, Potassium 4.2 D, Chloride 106, Carbon Dioxide 27, Anion Gap 10.2, BUN 13 D, Creatinine 1.00 D, Estimated Creat Clear 102, Estimated GFR 78, Est GFR ( Amer) 94 D, Glucose 140 H, Calcium 8.9, Magnesium 2.1, Total Bilirubin 0.5, AST 33, ALT 22, Alkaline Phosphatase 83, Total Protein 6.2 L, Albumin 3.5 D, Globulin 2.7, Albumin/Globulin Ratio 1.3 I & O for Last 24 hours: Intake & Output 02/11/24 02/12/24 02/13/24 02/14/24 23:59 23:59 23:59 23:59 Intake Total 1080 / 1080 Output Total 0 / 0 0 / 0 Balance 0 / 150 1080 / 1080 Weight 85.638 kg 85.638 kg Constitutional Constitutional: no acute distress, chronically ill appearing and cooperative *Routine HEENT Exam Head: Present normocephalic Eye: Present EOMI and PERRL ENT: Present mucous membranes moist *Routine Neck Exam Neck: Present supple; Absent lymphadenopathy Routine Chest/Breast/Axilla Exam Chest wall: Absent tenderness *Routine Respiratory Exam Respiratory: Present prolonged expiratory phase, wheezes and normal respiratory effort; Absent rhonchi or crackles *Routine Cardiovascular Exam Cardiovascular: Present RRR *Routine Abdominal Exam Abdominal: Present soft and normoactive bowel sounds; Absent tenderness *Routine Rectal Exam Patient deferred: visual exam *Routine Exam Patient deferred: penile exam *Routine Extremities Exam Extremities: Absent cyanosis, clubbing or edema *Routine Skin Exam Skin: Present warm; Absent rash *Routine Neurological Exam Neurological: Present alert, oriented X3 and moving all extremities; Absent altered mental status Results Data Completed and Pending Labs on day of discharge: Labs from last 24 hours 02/14/24 02/13/24 02/13/24 08:04 22:40 19:35 WBC 6.9 RBC 4.61 Hgb 15.0 Hct 48.3 MCV 104.9 H MCH 32.5 H MCHC 31.0 L RDW 14.0 Plt Count 259 MPV 8.7 Neut % (Auto) 70.3 Lymph % (Auto) 19.7 [place] % (Auto) 4.4 Eos % (Auto) 4.3 Baso % (Auto) 1.4 Neut # (Auto) 4.9 Lymph # (Auto) 1.4 [place] # (Auto) 0.3 Eos # (Auto) 0.3 Baso # (Auto) 0.1 D-Dimer Sodium 139 Potassium 4.2 D Chloride 106 Carbon Dioxide 27 Anion Gap 10.2 BUN 13 D Creatinine 1.00 D Estimated Creat Clear 102 Estimated GFR 78 Est GFR ( Amer) 94 D Glucose 140 H Calcium 8.9 Magnesium 2.1 Total Bilirubin 0.5 AST 33 ALT 22 Alkaline Phosphatase 83 Troponin I < 0.01 < 0.01 NT-Pro-B Natriuret Pep Total Protein 6.2 L Albumin 3.5 D Globulin 2.7 Albumin/Globulin Ratio 1.3 02/13/24 16:38 WBC 8.5 RBC 4.68 Hgb 15.4 Hct 46.7 MCV 99.9 H MCH 32.8 H MCHC 32.8 RDW 14.0 Plt Count 265 MPV 8.2 Neut % (Auto) 73.9 Lymph % (Auto) 18.2 [place] % (Auto) 2.1 Eos % (Auto) 4.7 Baso % (Auto) 1.1 Neut # (Auto) 6.3 Lymph # (Auto) 1.5 [place] # (Auto) 0.2 Eos # (Auto) 0.4 Baso # (Auto) 0.1 D-Dimer 0.38 Sodium 140 Potassium 3.2 L Chloride 106 Carbon Dioxide 25 Anion Gap 12.2 BUN 9 Creatinine 0.70 Estimated Creat Clear 147 Estimated GFR 118 Est GFR ( Amer) 142 Glucose 169 H Calcium 9.1 Magnesium Total Bilirubin 0.6 AST 34 ALT 29 Alkaline Phosphatase 72 Troponin I < 0.01 NT-Pro-B Natriuret Pep 32.3 Total Protein 6.7 Albumin 3.9 Globulin 2.8 Albumin/Globulin Ratio 1.4 DS: Diagnosis Discharge Diagnosis (1) Dyspnea on exertion: Status: Acute Code(s): R06.09 - Other forms of dyspnea (2) Angina pectoris, unstable: Status: Acute Code(s): I20.0 - Unstable angina Meds Home Medications and Allergies Home Medications ?Medication ?Instructions ?Recorded ?Confirmed ?Type amlodipine 5 mg tablet 5 mg PO DAILY 11/29/22 02/14/24 History aspirin 81 mg chewable tablet 81 mg PO DAILY 11/29/22 02/14/24 History gabapentin 300 mg capsule 300 mg PO TID 11/29/22 02/14/24 History atorvastatin 40 mg tablet 40 mg PO HS #30 tabs 02/14/24 Rx famotidine 20 mg tablet 20 mg PO DAILY 30 days #30 tabs 02/14/24 Rx lisinopril 20 mg tablet 20 mg PO DAILY #30 tabs 02/14/24 Rx New Prescriptions to Start Prescriptions: Edward Davis famotidine Edward Caputo lisinopril Edward Caputo Allergies Allergy/AdvReac Type Severity Reaction Status Date / Time No Known Allergies Allergy Verified 02/13/24 16:47 Discharge Plan Disposition Patient Disposition: Home, Self-Care Condition: Good Follow up Plan Follow up with: Chetan Yao MD [Primary Care Provider] - 02/21/24 2:00 pm Reyes De Santiago MD [Staff Physician] - 02/23/24 2:30 pm (will need $90.00 for cardiology visit) Prescriptions/Medication Reconciliation: New famotidine 20 mg Tablet 20 mg PO DAILY 30 Days Qty: 30 0RF lisinopril 20 mg tablet 20 mg PO DAILY Qty: 30 0RF atorvastatin 40 mg tablet 40 mg PO HS Qty: 30 0RF Continued amlodipine 5 mg tablet 5 mg PO DAILY Patient Comments: TAKE 1 TABLET BY MOUTH DAILY. gabapentin 300 mg capsule 300 mg PO TID Patient Comments: TAKE 1 CAPSULE BY MOUTH 3 TIMES DAILY. aspirin 81 mg tablet,chewable 81 mg PO DAILY Patient Comments: TAKE 1 TABLET BY MOUTH DAILY. Discontinued atorvastatin 10 mg tablet 10 mg PO DAILY Patient Comments: TAKE 1 TABLET BY MOUTH DAILY. lisinopril 5 mg tablet 5 mg PO DAILY Patient Comments: TAKE 1 TABLET BY MOUTH DAILY. Problem Reconciliation Problems Reviewed?: Yes Patient Discharge Instructions ACTIVITY: Continue current activity DIET: continue same diet Patient Instructions: DI for Atypical Chest Pain, DI for Shortness of Breath Print Language: Greek Providers Primary Care Provider: Chetan Yao Admit Provider: Edward Caputo Attending Provider: Edward Caputo
--- NOTE | 2024-02-16 12:39 | SW/DCPLANNER ---
Follow up phone call: patient stated that he is doing well at home. Patient stated that he was not able to waste picker medications due to cost and is waiting for his Medicaid to be active (24-48 hours) then will waste picker medications CM will investigate situation. Patient is aware of his upcoming schedule appointments.
== END 2024-02-14 16:02 | disposition home or self-care (01) ==
LOC: ER 17:10 → 2ND 20:00
PROVIDERS: Nurse Practitioner Family; Admitting Provider Internal Medicine Adolescent Medicine; Emergency Provider Emergency Medicine; PCP Family Medicine; Visit Provider Internal Medicine Adolescent Medicine
DX: R06.09 Other forms of dyspnea (principal); I20.0 Unstable angina; E87.6 Hypokalemia; I10 Essential (primary) hypertension; E78.5 Hyperlipidemia, unspecified; M51.36 Other intervertebral disc degeneration, lumbar region; M54.42 Lumbago with sciatica, left side; M54.41 Lumbago with sciatica, right side; F17.210 Nicotine dependence, cigarettes, uncomplicated; Z79.899 Other long term (current) drug therapy
CPT/HCPCS: 36415; 71045; 80053; 83735; 83880; 84484; 85025; 85378; 93005; 93306; 99285; G0378; J1644; J2270

== ENCOUNTER 2024-03-16 07:36 | Outpatient (CLI) | payer MEDICAID, SELFPAY ==
--- NOTE | 2024-03-16 | CA_ITS ---
APPROVED REPORT Exam: Pharmacologic Technologist: Karol Espinosa, Ht: 5 ft 10 in Wt: 182 lbs BSA: 2.01 m2 HR: 80 bpm BP: 119/75 mmHg Medical History Medications: Amlodipine,,,,, Lisinopril,,,,, Aspirin,,,,, Atorvastatin,,,,, Stress Test Details Test: LEXISCAN Reason for pharmacologic stress test: physical limitation. HR Resting HR: 82 bpm Max Heart Rate (APMHR): 165 bpm Max HR Achieved: 121 bpm Target HR (85% APMHR): 140 bpm % of APMHR: 73 Recovery HR: 94 bpm BP Resting BP: 119.0/75.0 mmHg Max BP: 129.0/73.0 mmHg Recovery BP: 128.0/73.0 mmHg ECG Resting ECG: NSR, normal Stress ECG: No significant ST changes Arrhythmia: PVCs Clinical Exercise duration: 04:08 min Highest Stage Achieved: Exercise capacity: 1.0 METs Stress ECG Conclusion Symptoms: SOA, mild chest pressure, mild head & stomach discomfort. Arrhythmias/Ectopy: Occasional PVC. ST-T Changes: No significant ST changes. Conclusion: Unremarkable Lexiscan stress. Myoview images reported separately. Test Summary REST . . . . . . . Resting REST 03:26 . . 82 . 119/ 75 . . Stage 1 . . . . . . . Cardiolite injected Stage 1 01:00 . . 105 . . . . Stage 2 01:00 . . 120 . 121/ 71 . . Stage 3 01:00 . . 117 . 111/ 77 . . Stage 4 01:00 . . 106 . 129/ 73 . . Stage 4 01:08 . . 112 . 129/ 73 . Stop exercise at 04:08 RECOVERY 01:00 . . 106 . . . . RECOVERY 02:00 . . 99 . 129/ 82 . . RECOVERY 03:00 . . 97 . 128/ 73 . . RECOVERY 03:16 . . 106 . 128/ 73 . . Electronically signed by : Claudia De Santiago MD 03/20/2024 00:01:50
--- NOTE | 2024-03-16 07:37 | NM_ITS ---
APPROVED REPORT Exam: Nuclear Stress Test Indication: chest pain..soa Patient Location: Outpatient Stress Tech: Karol Guevara DC Tech:YADY Eller RT(R)(N) Ht: 5 ft 10 in Wt: 182 lbs HR: 82 bpm BP: 119/75 mmHg BSA: 2.01 m2 TID: 0.96 BMI: 26.1 History: chest pain..soa Procedure: Patient received 0.4 mg of intravenous Lexiscan, resting heart rate 82 bpm, resting blood pressure 119/75 mmHg, with Lexiscan maximum heart rate achieved was 121 bpm which is 85 % of the maximum predicted heart rate and blood pressure was 129/73 mmHg. With Lexiscan, patient denied any complaint of chest pain. Cardiac Stress and Resting SPECT Images: Cardiac Stress and Resting SPECT images were obtained using technetium 99m Myoview 32.9 mCi stress and 10.98 mCi at rest. Technically difficult study due to significant soft tissue overlap with the borders of the LV wall. This may affect the diagnostic interpretation of the study findings. Resting and stress imaging in supine and prone positions demonstrate a medium sized, moderate, predominantly fixed perfusion defect in the basal to mid inferior and inferoseptal LV eisenberg. There is a small region of surrounding reversibility. Gated imaging demonstrates low-normal global and regional LV systolic function. LVEF is calculated at 50%. Conclusion: Medium sized, moderate, predominantly fixed perfusion defect in the basal to mid inferior and inferoseptal LV eisenberg. There is a small region of surrounding reversibility. Findings are suggestive of partial reversible ischemia. Gated imaging demonstrates low-normal global and regional LV systolic function. LVEF is calculated at 50%. Electronically signed by : Claudia De Santiago MD 03/20/2024 00:04:17
[2024-03-16] MEDS: SODIUM CHLORIDE 0.9% 10ML SYR (RAD ONLY) 10 ML IV ×2 (09:53)
[2024-03-16] MEDS: ISOTOPE MYOVIEW (PER STUDY) 1 DOSE IV (09:53)
[2024-03-16] MEDS: REGADENOSON 0.4MG/5ML SYRINGE 0.4 MG IV (09:53)
== END 2024-03-16 23:59 | disposition home or self-care (01) ==
LOC: RAD 07:37
PROVIDERS: PCP Family Medicine; Visit Provider Physician Assistant
DX: R55 Syncope and collapse (principal); I20.0 Unstable angina; R06.09 Other forms of dyspnea; I10 Essential (primary) hypertension; F17.200 Nicotine dependence, unspecified, uncomplicated
CPT/HCPCS: 78452; 93017; 93018; A9502; J2785

== ENCOUNTER 2024-04-20 07:03 | Outpatient (CLI) | payer MEDICAID, SELFPAY ==
[2024-04-20] VITALS (7 sets, daily range): BP systolic 82–120; BP diastolic 45–85; PULSE 58–68; RESP 18; TEMP 36.6; O2SAT 98–99; BMI 26.4; BMI 26.2
--- NOTE | 2024-04-20 07:04 | CT_ITS ---
APPROVED REPORT Abrasive Grinder: CLINICAL INDICATION Chest Pain TECHNIQUE Image Acquisition: A 128 slice MDCT scanner ([employer] View) was used for data acquisition. A noncontrast coronary calcium scan was performed. A CT attenuation threshold of 130 Hounsfield units (HU) was used for the detection of calcium in contiguous voxels of 1 sq mm in area to be counted as individual lesions. Bolus tracking in the ascending aorta with a threshold of 180 HU was performed. Immediately afterwards, ECG synchronized cardiac CT was then performed from the cardiac base to apex using retrospective gating with ECG tube current modulation. A total of 85 mL of Isovue 370 mg/mL contrast medium was administered at 5 mL/sec followed by a saline flush using a biphasic injection protocol. A tube voltage of 120 KVp was used. The patient received the following medications prior to the cardiac CT. 50 mg of oral metoprolol 15 mg of oral ivabradine 0.8 mg of sublingual nitroglycerin The average heart rate at the time of acquisition was 54 bpm and regular. Image Reconstruction Transaxial images were reconstructed at 0.67 mm slide thickness. Data was reviewed interactively on an advanced workstation capable of 2 and 3-dimensional displays in all conventional reconstruction formats, including multiplanar reformations, maximum intensity projections, curved multiplanar reformations, and volume rendered reconstructions. When applicable, selected routine images describing the relevant coronary anatomy and pathology were saved and sent to PACS. Complications None Technical Quality Overall image quality was good. Coronary artery opacification was adequate. Total DLP (Dose-Length Product) is 1068.5 mGy-cm. The reported value represents the total of one or more individual components during the CT acquisition of this date and at this time, and as such, the same value may appear in more than one CT report depending on the interpreting/reporting physicians. COMPARISON None FINDINGS CT Coronary Calcium Scoring LMA (Left Main Artery) = 0 LAD (Left Anterior Descending) = 0 LCX (Left Coronary Circumflex) = 0 RCA (Right Coronary Artery) = 5 Total Calcium Score = 5 using the AJ-130 method. The observed calcium score of 5 is at 48th percentile for subjects of the same age, sex, and race/ethnicity. The interpretation of the calcium heart score is based on the following continuum*: 0 = no calcified plaque detected (risk of coronary artery disease is very low ??? less than 5%) 1-10 = calcium detected in extremely minimal levels (risk of coronary diseases is still low ??? less than 10%) 11-100 = mild levels of plaque detected with certainty (mild or minimal narrowing of heart arteries is likely) 101-400 = definite,at least moderate levels of plaque detected (relatively high risk of a heart attack within 3-5 years) >401-999 = extensive levels of plaque detected (high risk of heart attack, high levels of vascular disease are present, high likelihood of at least one significant coronary narrowing) *The calcium heart score quantifies the burden of coronary calcification/plaque in the coronary arteries. The calcium heart score is not able to evaluate the presence or burden of non-calcified (i.e. soft) plaque. There is also identifiable calcification in the ascending and descending thoracic aorta. Coronary CT Angiography The coronary arterial system is right dominant. Quantitative Stenosis Grading: Left Main (LM): The left main originates normally from the left sinus of Valsalva. The LM bifurcates into the left anterior descending artery and left circumflex artery. The LM is patent with no evidence of atherosclerosis. Left Anterior Descending (LAD) and Diagonal Branches: The LAD gives off 3 diagonal branch(es). There is mild noncalcified plaque along the mid LAD segment with up to 25-50% luminal stenosis. There is a shallow mid LAD myocardial bridge, measuring 8 mm in length and 1 mm in depth. Left Circumflex (LCX) and Obtuse Marginals (OM): The LCX gives off 1 Obtuse Marginal (OM) branch(es). The LCX and its branches are patent with no evidence of atherosclerosis. Right Coronary Artery (RCA): The RCA originates normally from the right sinus of Valsalva. The RCA gives off a posterior descending artery (PDA) and posterolateral (PL) branches. There is 1 focus of calcified plaque in the proximal RCA segment, with no evidence of luminal stenosis. Non-Coronary Cardiac Findings: Analysis of the left ventricular (LV) structure and function was performed after 3-D reconstruction of the LV from axial images, with user-corrected automatic contouring for assessment of LV volumes and user-defined reconstruction from oblique planes for measurement of 3-D cardiac structure and function. -The left ventricle systolic function is normal. -There is no left atrial appendage filling defect. Two right pulmonary veins and two left pulmonary veins drain normally into the left atrium. -No pericardial thickening or calcification. -Central and branch pulmonary arteries in the [id number] are unremarkable. -Thoracic aorta within the visualized thoracic aortic-branches in the [id number] is unremarkable. Extracardiac Structures No significant extra-cardiac findings. Note, however, that this study is focused on the cardiac findings. IMPRESSION -Presence of coronary calcification with an Agatston score = 5 using the AJ-130 method. -The observed calcium score of 5 is at 48th percentile for subjects of the same age, sex, and race/ethnicity. -Mild, nonobstructive atherosclerotic coronary disease in the mid LAD segment, with no evidence of significant flow-limiting atherosclerosis of the coronary arteries. -Shallow mid LAD myocardial bridge, measuring 8 mm in length and 1 mm in depth. -CAD-RADS 2. Management recommendations per ACC/AHA guidelines*, as clinically appropriate. *Recommendations: CAD RADS 0: Reassurance. Consider non-atherosclerotic causes of chest pain. CAD RADS 1: Consider non-atherosclerotic causes of chest pain. Consider preventive therapy and risk factor modification. CAD RADS 2: Consider non-atherosclerotic causes of chest pain. Consider preventive therapy and risk factor modification, particularly for patients with nonobstructive plaque in multiple segments. CAD RADS 3: Consider further functional testing. Consider symptom-guided anti-ischemic and preventive pharmacotherapy as well as risk factor modification per published guideline statements. CAD RADS 4A: Consider further functional testing or invasive coronary angiography with revascularization per published guideline statements. Consider symptom-guided anti-ischemic and preventive pharmacotherapy as well as risk factor modification per published guideline statements. CAD RADS 4B: Invasive coronary angiography recommended with revascularization per published guideline statements. Consider symptom-guided anti-ischemic and preventive pharmacotherapy as well as risk factor modification per published guideline statements. CAD RADS 5: Consider invasive angiography and/or viability assessment with revascularization per published guideline statements. Consider symptom-guided anti-ischemic and preventive pharmacotherapy as well as risk factor modification per published guideline statements. CRITICAL RESULT None COMMUNICATION Per this written report The coronary and cardiac findings of this CCTA were reviewed, reported, and signed by Reyes De Santiago MD (Cst) Conclusion Electronically signed by : Claudia De Santiago MD 04/24/2024 12:41:26
[2024-04-20] MEDS: METOPROLOL TARTRATE 50MG TABLET PO (07:54)
[2024-04-20] MEDS: IVABRADINE HCL 7.5MG TABLET PO (07:54)
[2024-04-20 08:02] LABS: Chloride 105 mmol/L (98-107)
[2024-04-20 08:03] LABS: Potassium 4.3 mmoL/L (3.5-5.1); Sodium 140 mmol/L (136-145)
[2024-04-20 08:05] LABS: Blood Urea Nitrogen 12 mg/dl (9-20); Creatinine Clearance Estimated 98 mL/min (50-200); Estimated Glomerular Filt Rate 78 ml/min (>60); GFR (African American) 94 ML/MIN (>60)
[2024-04-20 08:06] LABS: Anion Gap 8.3 mEq/L (5-15); Calcium 9.5 mg/dl (8.4-10.2); Carbon Dioxide 31 mmol/L (22.0-30.0); Glucose 114 mg/dl (74-100)
[2024-04-20] MEDS: NITROGLYCERIN 0.4MG SL TABLET SL (08:54)
[2024-04-20] MEDS: IOPAMIDOL-370 (76%);100ML BOTTLE 85 ML IV (10:02)
[2024-04-20] MEDS: SODIUM CHLORIDE 0.9% 10ML SYR (RAD ONLY) 10 ML IV (10:02)
[2024-04-20] MEDS: 0.9 % SODIUM CHLORIDE 50 ML VIAL IV (10:02)
== END 2024-04-20 09:35 | disposition home or self-care (01) ==
PROVIDERS: PCP Family Medicine; Visit Provider Physician Assistant
DX: I20.89 Other forms of angina pectoris (principal); I10 Essential (primary) hypertension
CPT/HCPCS: 75574; 80048; Q9967

== ENCOUNTER 2024-05-04 16:41 | Emergency (ER) | payer MEDICAID, SELFPAY ==
[2024-05-04 17:00] VITALS: BP 132/74; PULSE 82; RESP 20; TEMP 37; O2SAT 95; BMI 25.4
--- NOTE | 2024-05-04 17:11 | ED_ITS ---
Discharge Plan Disposition Patient Disposition: Home, Self-Care Condition: Good Prescriptions Prescriptions: New prednisone 10 mg tablet 10 mg PO DIRECTED 9 Days Qty: 21 0RF Rx Instructions: Take 4 tablets daily for 3 days, then take 2 tablets daily for 3 days, then take 1 tablet daily for 3 days, then stop. benzonatate 100 mg capsule 100 mg PO TIDP PRN (Reason: Cough) Qty: 30 0RF amoxicillin-pot clavulanate 875-125 mg Tablet 1 tab PO Q12H Qty: 20 0RF No Action aspirin [St Pranay Aspirin] 81 mg tablet,chewable 81 mg PO DAILY Patient Comments: TAKE 1 TABLET BY MOUTH DAILY. atorvastatin [Lipitor] 40 mg tablet 40 mg PO HS lisinopril [Zestril] 20 mg tablet 20 mg PO DAILY metoprolol succinate [Toprol XL] 25 mg tablet extended release 24 hr 25 mg PO DAILY Referrals Follow up/Referrals: Chetan Yao MD [Primary Care Provider] - See instructions Activity Restrictions/Add. Instructions Additional Instructions/Restrictions: Drink plenty of fluids. Take tylenol for pain or fever. Take the medications as directed. Follow up with your regular doctor. GO TO THE ER FOR ANY WORSENING SYMPTOMS Clinical Impressions Clinical Impression: COPD exacerbation, Bronchitis Instructions Patient Instructions: Chronic Obstructive Pulmonary Disease, DI for Chronic Obstructive Pulmonary Disease, Methylprednisolone, Amoxicillin and Clavulanic Acid Print Language Print Language: Setswana Discharge ED Provider: Edward Naylor [facility] General Stated complaint: runny nose,drainage,GRAHAM,cough Mode of Arrival: Ambulatory Source of Information: Patient Limitations: No Limitations Time Seen by Provider: 05/04/24 17:11 Description of Symptoms (Recalled from Triage Doc. by RN): PATIENT C/O COUGH WITH MUCOUS AND CHEST CONGESTION THAT STARTED YESTERDAY HEENT Symptoms (Recalled from RN notes): No Resp Symptoms (Recalled from RN notes): Yes Skin Symptoms (Recalled from RN notes): No MS Symptoms (Recalled from RN notes): No Functional Status (Recalled from RN notes): WNL Related Data Home Medications ?Medication ?Instructions ?Recorded ?Confirmed aspirin 81 mg chewable tablet (St 81 mg PO DAILY 11/29/22 05/04/24 Pranay Aspirin) atorvastatin 40 mg tablet (Lipitor) 40 mg PO HS 04/19/24 05/04/24 lisinopril 20 mg tablet (Zestril) 20 mg PO DAILY 04/19/24 05/04/24 metoprolol succinate 25 mg 25 mg PO DAILY 04/19/24 05/04/24 tablet,extended release 24 hr (Toprol XL) Previous Rx's ?Medication ?Instructions ?Recorded amoxicillin 875 mg-potassium 1 tab PO Q12H #20 tabs 05/04/24 clavulanate 125 mg tablet benzonatate 100 mg capsule 100 mg PO TIDP PRN Cough #30 caps 05/04/24 prednisone 10 mg tablet 10 mg PO DIRECTED 9 days #21 05/04/24 tabs Allergies Allergy/AdvReac Type Severity Reaction Status Date / Time No Known Allergies Allergy Verified 04/26/24 10:35 Worker's Comp Is this a Worker's Comp case?: No [facility] Disclaimer: The information contained in this section may have been updated after the patient was seen, as this information can be updated by other users. Medical History (Updated 05/04/24 @ 17:30 by Edward Naylor APRN) Abnormal findings on diagnostic imaging of heart and coronary circulation Smoker Syncope History of back pain Hyperlipidemia Hypertension Family History (Updated 04/20/24 @ 07:40 by Wendie Rosas RN) Other No significant family history Social History (Updated 04/20/24 @ 07:40 by Wendie Rosas RN) Smoking Status: Current every day smoker smoking status start date: 1983 years smoked: 40 quit status: not considering quitting alcohol intake: never substance use type: denies use current occupational status: unemployed and disabled Travel in the last 8 weeks: None household members: significant other marital status: life partner service: No longterm: No caffeine: Yes physical activity: walking ROS Obtained: Yes All systems reviewed & no additional complaints except as documented Constitutional Constitutional: Reports poor appetite Eyes Eyes: Reports system reviewed and no additional complaints, except as documented ENT Ears, Nose, Mouth, and Throat: Reports as per HPI Cardiovascular Cardiovascular: Reports system reviewed and no additional complaints, except as documented and Denies chest pain Respiratory Respiratory: Denies shortness of breath, Reports chest congestion, Reports cough, Denies stridor and Denies wheezing Gastrointestinal Gastrointestingal: Reports system reviewed and no additional complaints, except as documented; Denies abdominal pain, diarrhea or vomiting Musculoskeletal Musculoskeletal: Reports system reviewed and no additional complaints, except as documented and Denies arthralgias Integumentary/Breasts Skin/Breast: Reports system reviewed and no additional complaints, except as documented and Denies rash Neurologic Neurologic: Denies paresthesias Allergic/Immunologic Allergic/Immunologic: Denies wheezing Physical Exam General General appearance: alert and in no apparent distress Eye Eye exam: Present normal appearance, PERRL and EOMI ENT ENT exam: Present mucous membranes moist and normal external ear exam Expanded ENT Exam External ear exam: Present normal external inspection TM/Canal exam: Bilateral TM: erythema and bulging Nose exam: Absent sinus tenderness Nasal speculum exam: Bilateral: normal Mouth exam: Present normal external inspection; Absent drooling Teeth exam: Present normal inspection Throat exam: Present tonsillar erythema and tonsillomegaly Neck Neck exam: Present normal inspection, full ROM and trachea midline; Absent tenderness, lymphadenopathy or thyromegaly Chest Chest inspection: Present normal inspection and symmetric chest wall rise; Absent tenderness or rash Respiratory Respiratory exam: Present normal lung sounds bilaterally; Absent respiratory distress, wheezes, stridor or accessory muscle use Cardiovascular Cardiovascular exam: Present regular rate, normal rhythm and normal heart sounds Abdominal Exam Abdominal exam: Present soft; Absent distention, tenderness, guarding, rebound or rigidity Extremities Exam Extremities exam: Present normal inspection, full ROM and normal capillary refill; Absent tenderness or calf tenderness Back Exam Back exam: Present normal inspection and full ROM; Absent tenderness Neurological Exam Neurological exam: Present alert and oriented X3 Psychiatric Psychiatric exam: Present normal affect and normal mood Skin Skin exam: Present warm, dry, intact and normal color Lymphatic Lymphatic Findings: no adenopathy Medical Decision Making Medical Records Medical records reviewed: No I reviewed the patient's medical records. Screening: Per USPSTF and CDC recommendations, given the prevalence of disease in our region, it is our hospital?s policy to screen for HIV and viral Hepatitis for all patients aged 18 and over and those with ongoing risk factors. Dixon Inquiry Pt receiving controlled substance: No Vital Signs: 05/04/24 17:00 Temperature 98.6 F Temperature Source Oral Pulse Rate [Left Brachial] 82 Respiratory Rate 20 Blood Pressure [Left Arm] 132/74 Blood Pressure Mean [Left Arm] 93 Blood Pressure Source [Left Arm] Automatic Cuff Blood Pressure Position [Left Arm] Sitting 02 Sat by Pulse Oximetry 95 Oxygen Delivery Method Room Air Lab Data Lab results reviewed: Yes I reviewed the patient's lab results.
[2024-05-04 17:32] VITALS: BP 132/74; PULSE 82; RESP 20; TEMP 37; O2SAT 95
== END 2024-05-04 17:37 | disposition home or self-care (01) ==
PROVIDERS: Emergency Provider Nurse Practitioner Family; PCP Family Medicine
DX: J40 Bronchitis, not specified as acute or chronic (principal); J44.1 Chronic obstructive pulmonary disease with (acute) exacerbation; R09.89 Other specified symptoms and signs involving the circulatory and respiratory systems; R51.9 Headache, unspecified; R05.9 Cough, unspecified
CPT/HCPCS: 87635; 99212; G0381

== ENCOUNTER 2024-07-11 15:53 | Emergency (ER) | payer MEDICAID, SELFPAY ==
[2024-07-11 16:45] VITALS: BP 116/70; PULSE 96; RESP 19; TEMP 36.9; O2SAT 98; BMI 27.7
--- NOTE | 2024-07-11 17:01 | ED_ITS ---
Discharge Plan Disposition Patient Disposition: Home, Self-Care Condition: Good Prescriptions Prescriptions: No Action aspirin [St Pranay Aspirin] 81 mg tablet,chewable 81 mg PO DAILY Patient Comments: TAKE 1 TABLET BY MOUTH DAILY. atorvastatin [Lipitor] 40 mg tablet 40 mg PO HS lisinopril [Zestril] 20 mg tablet 20 mg PO DAILY metoprolol succinate [Toprol XL] 25 mg tablet extended release 24 hr 25 mg PO DAILY prednisone 10 mg tablet 10 mg PO DIRECTED 9 Days Qty: 21 0RF Rx Instructions: Take 4 tablets daily for 3 days, then take 2 tablets daily for 3 days, then take 1 tablet daily for 3 days, then stop. benzonatate 100 mg capsule 100 mg PO TIDP PRN (Reason: Cough) Qty: 30 0RF amoxicillin-pot clavulanate 875-125 mg Tablet 1 tab PO Q12H Qty: 20 0RF Referrals Follow up/Referrals: Chetan Yao MD [Primary Care Provider] - See instructions Nieves Matthews MD [Referring] - See instructions Cisco Zhegn MD [Referring] - See instructions Chetan Snyder MD [Referring] - See instructions Dayday Robin MD [Referring] - See instructions Activity Restrictions/Add. Instructions Additional Instructions/Restrictions: Call Dermatology on and get in as soon as possible, I have listed several local [employer] that you can try or pick one of your choice Follow up with your Family Doctor Return if needed Clinical Impressions Clinical Impression: Impacted cerumen, left ear, Skin problem Instructions Patient Instructions: Cerumen Impaction Print Language Print Language: Azerbaijani Discharge ED Provider: Maddi Leal [facility] [place] General Stated complaint: Difficulty hearing LT ear,skin rash RT shoulder Mode of Arrival: Ambulatory Source of Information: Patient Limitations: No Limitations Time Seen by Provider: 07/11/24 17:02 Description of Symptoms (Recalled from Triage Doc. by RN): PATIENT C/O RED KNOT TO RIGHT UPPER CHEST AND DECREASED HEARING TO LEFT EAR HEENT Symptoms (Recalled from RN notes): Yes Resp Symptoms (Recalled from RN notes): No Skin Symptoms (Recalled from RN notes): Yes MS Symptoms (Recalled from RN notes): No Functional Status (Recalled from RN notes): WNL History of Present Illness Provider Complaint: Patient states that he has a place on his right shoulder area that he noticed a few weeks ago and then it kind of popped and opened up but not draining now but the area is sore States that his left ear is also stopped up with wax and he cannot hear out of it wanting to get it cleaned out Related Data Home Medications ?Medication ?Instructions ?Recorded ?Confirmed atorvastatin 40 mg tablet 40 mg PO DAILY 07/11/24 07/11/24 lisinopril 20 mg tablet 20 mg PO DAILY 07/11/24 07/11/24 metoprolol succinate 25 mg 25 mg PO DAILY 07/11/24 07/11/24 tablet,extended release 24 hr Allergies Allergy/AdvReac Type Severity Reaction Status Date / Time No Known Allergies Allergy Verified 04/26/24 10:35 Worker's Comp Is this a Worker's Comp case?: No [facility] Disclaimer: The information contained in this section may have been updated after the patient was seen, as this information can be updated by other users. Medical History (Updated 07/11/24 @ 17:21 by Maddi Leal APRN) Abnormal findings on diagnostic imaging of heart and coronary circulation Smoker Syncope History of back pain Hyperlipidemia Hypertension Family History (Updated 04/20/24 @ 07:40 by Wendie Rosas RN) Other No significant family history Social History (Updated 04/20/24 @ 07:40 by Wendie Rosas RN) Smoking Status: Current every day smoker smoking status start date: 1983 smoked: 40 quit status: not considering quitting alcohol intake: never substance use type: denies use current occupational status: unemployed and disabled Travel in the last 8 weeks: None household members: significant other marital status: life partner service: No halfway: No caffeine: Yes physical activity: walking Have you lived/traveled outside [place] in past 30 days?: No Contact w/someone who lives/traveled outside [place] past 30 days?: No Exposure to someone with infectious disease in past 14 days?: No Do you have a fever (greater than 100.4 F or 38 C)?: No Have you tested positive for COVID-19: No Exposed to someone with COVID-19 in past 14 days?: No Do you have a sore throat?: No Do you have a cough?: No Do you have any weakness?: No Do you have any diarrhea?: No Are you experiencing any unusual bleeding?: No Do you have any muscle aches/pain?: No Do you have any abdominal pain?: No Are you experiencing loss of taste or smell?: No ROS Obtained: Yes All systems reviewed & no additional complaints except as documented and Yes Systems reviewed as appropriate & no additional complaints except as documented Constitutional Constitutional: Reports system reviewed and no additional complaints, except as documented and Reports as per HPI ENT Ears, Nose, Mouth, and Throat: Reports system reviewed and no additional complaints, except as documented, Reports as per HPI and Reports other (left ear stopped up) Cardiovascular Cardiovascular: Reports system reviewed and no additional complaints, except as documented and Reports as per HPI Respiratory Respiratory: Reports system reviewed and no additional complaints, except as documented and Reports as per HPI Gastrointestinal Gastrointestingal: Reports system reviewed and no additional complaints, except as documented and as per HPI Physical Exam General General appearance: alert and in no apparent distress Expanded ENT Exam TM/Canal exam: Left TM: cerumen impaction Respiratory Respiratory exam: Present normal lung sounds bilaterally Cardiovascular Cardiovascular exam: Present regular rate, normal rhythm and normal heart sounds Neurological Exam Neurological exam: Present alert, oriented X3 and normal gait Skin Skin exam: Present other Expanded Skin Exam Body image: 2 1. red shiny raised area with rolled borders and center that appears open,no drainage suspicious for basal cell carcinoma Medical Decision Making Medical Records Screening: Per USPSTF and CDC recommendations, given the prevalence of disease in our region, it is our hospital?s policy to screen for HIV and viral Hepatitis for all patients aged 18 and over and those with ongoing risk factors. Dixon Inquiry Pt receiving controlled substance: No Dixon was queried for this patient: No Vital Signs: 07/11/24 16:45 Temperature 98.4 F Temperature Source Oral Pulse Rate [Left Brachial] 96 H Respiratory Rate 19 Blood Pressure [Left Arm] 116/70 Blood Pressure Mean [Left Arm] 85 Blood Pressure Source [Left Arm] Automatic Cuff Blood Pressure Position [Left Arm] Sitting 02 Sat by Pulse Oximetry 98 Oxygen Delivery Method Room Air Procedures Ear Wax Removal Left Ear: Cerumenolytic Used: other Results: Re-examined: some cerumen remains Ear Canal Exam: atraumatic Patient Tolerated Procedure: well and no complications Complications: no problems Technique: ear canal irrigated and ear canal curetted
[2024-07-11 17:21] VITALS: BP 116/70; PULSE 96; RESP 19; TEMP 36.9; O2SAT 98
== END 2024-07-11 17:26 | disposition home or self-care (01) ==
PROVIDERS: Emergency Provider Nurse Practitioner; PCP Family Medicine
DX: H61.22 Impacted cerumen, left ear (principal); L98.9 Disorder of the skin and subcutaneous tissue, unspecified; R22.31 Localized swelling, mass and lump, right upper limb
CPT/HCPCS: 99212; G0381

== ENCOUNTER 2024-09-04 14:43 | Outpatient (CLI) | payer MEDICAID, SELFPAY ==
[2024-09-04] MEDS: ALBUTEROL 0.083% 2.5 MG/3 ML NEB IH (15:14)
--- NOTE | 2024-09-04 15:14 | PC.NURSE ---
PFT and 6 Minute Walk Test completed without incident. Albuterol 0.083% given via HHN, per written protocol, Pt tolerated tx well.
== END 2024-09-04 23:59 | disposition home or self-care (01) ==
LOC: RT 14:44
PROVIDERS: PCP Family Medicine; Visit Provider Internal Medicine Pulmonary Disease
DX: R06.09 Other forms of dyspnea (principal)
CPT/HCPCS: 94060; 94618; 94726; 94729; J7613

== ENCOUNTER 2024-10-07 18:58 | Emergency (ER) | payer MEDICAID, SELFPAY ==
[2024-10-07 19:22] VITALS: BP 130/73; PULSE 79; RESP 16; TEMP 36.9; O2SAT 97; BMI 25.9
--- NOTE | 2024-10-07 20:14 | CT_ITS ---
PROCEDURE INFORMATION: Exam: CT Cervical Spine Without Contrast Exam date and time: 10/07/2024 8:19 PM Age: 54 years old Clinical indication: Numbness; Additional info: Numbness in bilateral arms TECHNIQUE: Imaging protocol: Computed tomography of the cervical spine without contrast. Radiation optimization: All CT scans at this facility use at least one of these dose optimization techniques: automated exposure control; mA and/or kV adjustment per patient size (includes targeted exams where dose is matched to clinical indication); or iterative reconstruction. 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 Partial right cervical rib. Diffuse decreased disc space height from C3-C7 with small posterior disc osteophytes Lungs: Lung apices are normal. Soft tissues: Prevertebral soft tissues appear normal Other findings: Posterior elements appear intact. IMPRESSION: 1. No visible acute fracture/malalignment. 2. Incidental findings above
--- NOTE | 2024-10-07 20:15 | CT_ITS ---
PROCEDURE INFORMATION: Exam: CT Thoracic Spine Without Contrast Exam date and time: 10/07/2024 8:26 PM Age: 54 years old Clinical indication: Numbness TECHNIQUE: Imaging protocol: Computed tomography of the thoracic spine without contrast. Radiation optimization: All CT scans at this facility use at least one of these dose optimization techniques: automated exposure control; mA and/or kV adjustment per patient size (includes targeted exams where dose is matched to clinical indication); or iterative reconstruction. COMPARISON: CT CERVICAL SPINE WO CON 10/07/2024 8:19 PM FINDINGS: Bones/joints: Vertebral body heights and disc space height is normal throughout. Very mild disc osteophyte formation anteriorly. Soft tissues: Unremarkable. Lungs: Incidentally noted multifocal calcified granulomas in bilateral lower lobes IMPRESSION: No visible acute injury or bony central canal stenosis.
--- NOTE | 2024-10-07 20:16 | XR_ITS ---
PROCEDURE INFORMATION: Exam: XR Chest Exam date and time: 10/07/2024 8:28 PM Age: 54 years old Clinical indication: Other: Posterior rib pain; Additional info: Rib pain, posterior TECHNIQUE: Imaging protocol: Radiologic exam of the chest. Views: 1 view. COMPARISON: CR XR CHEST PORTABLE 02/13/2024 4:41 PM FINDINGS: Lungs: Unremarkable. No consolidation. Pleural spaces: Unremarkable. No pleural effusion. No pneumothorax. Heart/Mediastinum: Unremarkable. No cardiomegaly. Bones/joints: Unremarkable. IMPRESSION: No acute findings.
--- NOTE | 2024-10-07 20:27 | PC.NURSE ---
patient in ct scan
[2024-10-07] MEDS: methylPREDNISolone ACETATE 80MG/ML VIAL 80 MG IM (20:31)
[2024-10-07] MEDS: HYDROCODONE/APAP 5/325 MG TABLET 2 TAB PO (20:31)
[2024-10-07 20:38] VITALS: BP 152/93; PULSE 76; RESP 18; O2SAT 97
--- NOTE | 2024-10-07 20:50 | HMH.EDGENADL ---
Discharge Plan Disposition Patient Disposition: Home, Self-Care Prescriptions Prescriptions: New prednisone 20 mg tablet 40 mg PO DAILY 5 Days Qty: 10 0RF meloxicam 7.5 mg tablet 7.5 mg PO DAILY Qty: 14 0RF Referrals Follow up/Referrals: Antelmo Monroe DO [Staff Physician] - See instructions Chetan Yao MD [Primary Care Provider] - See instructions Clinical Impressions Clinical Impression: Degenerative arthritis of cervical spine Instructions Patient Instructions: DI for Chronic Pain -- Adult Print Language Print Language: Greenlandic Discharge ED Provider: Jorge Huff General Adult HPI <Cheryl Ansari (ED), CHILDREN'S AIDE - Last Filed: 10/07/24 21:55> General Chief complaint: PAIN Stated complaint: Upper back pain,no injury Time Seen by Provider: 10/07/24 20:03 Mode of Arrival: Ambulatory Source of Information: Patient Description of Symptoms (Recalled from ER Triage Doc. by RN): Patient c/o neck pain that radiates down his back,denies any injury. Reports chronic pain from DDD. Ambulates with a cane. Right foot deformity present. Reports MD stopped Gabpentin a year ago. History of Present Illness HPI narrative: This is a 54-year-old male who presents to the ED today with complaint of neck pain that radiates down through his back. He also complains of numbness that goes down both arms into his hands. He complains of pain that also shoots down both arms. He has had no trauma or injury to his neck or back. Patient complains that he has had low back pain for years and reports degenerative disc disease in his neck and low back. Patient specifically is here for his neck and upper back pain. He tells me he knows why his lower back hurts. Related Data Previous Rx's ?Medication ?Instructions ?Recorded meloxicam 7.5 mg tablet 7.5 mg PO DAILY #14 tabs 10/07/24 prednisone 20 mg tablet 40 mg (2 x 20 mg) PO DAILY 5 days 10/07/24 #10 tabs Allergies Allergy/AdvReac Type Severity Reaction Status Date / Time No Known Allergies Allergy Verified 07/27/24 10:38 PFSH <Cheryl Ansari (ED), CHILDREN'S AIDE - Last Filed: 10/07/24 21:55> [facility] Disclaimer: The information contained in this section may have been updated after the patient was seen, as this information can be updated by other users. Medical History Dyspnea Encounter for screening for malignant neoplasm of lung Smoking greater than 30 pack years Abnormal findings on diagnostic imaging of heart and coronary circulation Smoker Syncope History of back pain Hyperlipidemia Hypertension Family History Other No significant family history Social History Smoking Status: Current every day smoker smoking status start date: 1983 smoked: 40 quit status: not considering quitting alcohol intake: never substance use type: denies use current occupational status: unemployed and disabled Travel in the last 8 weeks: None household members: significant other marital status: life partner service: No usp: No caffeine: Yes physical activity: walking Have you lived/traveled outside US in past 30 days?: No Contact w/someone who lives/traveled outside US past 30 days?: No Exposure to someone with infectious disease in past 14 days?: No Do you have a fever (greater than 100.4 F or 38 C)?: No Have you tested positive for COVID-19: No Exposed to someone with COVID-19 in past 14 days?: No Do you have a sore throat?: No Do you have a cough?: No Do you have any weakness?: No Do you have any diarrhea?: No Are you experiencing any unusual bleeding?: No Do you have any muscle aches/pain?: Yes Do you have any abdominal pain?: No Are you experiencing loss of taste or smell?: No Other Medical History Have you received the Flu Vaccine for this season: No Have you received the Pneumonia Vaccine: Yes <Cheryl Ansari (ED), CHILDREN'S AIDE - Last Filed: 10/07/24 21:55> ROS Obtained: Yes Systems reviewed as appropriate & no additional complaints except as documented Constitutional Constitutional: Reports as per HPI Physical Exam <Cheryl Ansari (ED), CHILDREN'S AIDE - Last Filed: 10/07/24 21:55> General General appearance: alert and in no apparent distress Head Head exam: atraumatic and normocephalic Eye Eye exam: Present PERRL and EOMI ENT ENT exam: Present mucous membranes moist Neck Neck exam: Present trachea midline and tenderness (With movement) Respiratory Respiratory exam: Present normal lung sounds bilaterally Cardiovascular Cardiovascular exam: Present regular rate, normal rhythm, normal heart sounds, +S1 and +S2 Extremities Exam Extremities exam: Present normal inspection, full ROM and normal capillary refill Back Exam Back exam: Present normal inspection, paraspinal tenderness and vertebral tenderness Neurological Exam Neurological exam: Present alert and oriented X3 Skin Skin exam: Present warm, dry and intact <Jorge Huff MD - Last Filed: 10/07/24 23:51> Neurological Exam Neurological exam: Absent motor sensory deficit Medical Decision Making <Cheryl Ansari (ED), CHILDREN'S AIDE - Last Filed: 10/07/24 21:55> Medical Records Screening: Per USPSTF and CDC recommendations, given the prevalence of disease in our region, it is our hospital?s policy to screen for HIV and viral Hepatitis for all patients aged 18 and over and those with ongoing risk factors. Dixon Inquiry Pt receiving controlled substance: No Dixon was queried for this patient: No Vital Signs: 10/07/24 19:22 10/07/24 20:38 10/07/24 22:45 Temperature 98.4 F 98.9 F Temperature Source Oral Oral Pulse Rate 76 64 Pulse Rate [Right] 79 Respiratory Rate 16 18 16 Blood Pressure 152/93 H 134/68 Blood Pressure [Right Arm] 130/73 Blood Pressure Mean [Right Arm] 92 Blood Pressure Source Automatic Cuff Blood Pressure Source [Right Arm] Automatic Cuff Blood Pressure Position Sitting Sitting Blood Pressure Position [Right Arm] Sitting 02 Sat by Pulse Oximetry 97 97 Oxygen Delivery Method Room Air Room Air Room Air Orders (Tests/Meds): ED MEDICATIONS Discontinued Medications Generic Name Dose Route Start Last Admin Trade Name Freq PRN Reason Stop Dose Admin Hydrocodone Bitart/Acetaminophen 2 tab 10/07/24 20:19 10/07/24 20:31 Hydrocodone/Apap 5/325 Mg Tablet PO 10/07/24 20:20 2 tab ONCE ONE Administration Methylprednisolone Acetate 80 mg 10/07/24 20:20 10/07/24 20:31 Methylprednisolone Acetate 80mg/Ml Vial IM 10/07/24 20:21 80 mg ONCE ONE Administration ORDERS Category Date Time Status CT cervical spine wo con Stat Cat Scan 10/07/24 20:[address] thoracic spine wo con Stat Cat Scan 10/07/24 20:15 Completed XR chest portable Stat Exams 10/07/24 20:16 Completed Medical Decision Narrative: Insert review patient is a 54-year-old male presenting to the emergency department for evaluation of neck pain causing bilateral hand numbness. Patient is hemodynamically stable and nontoxic-appearing upon arrival, afebrile. Differential diagnosis includes degenerative disease, injury, spinal stenosis among others. Workup will be conducted with CT scans of spine and pain meds. Initial inventions include pain meds and imaging. Imaging informally interpreted by me and remarkable for nothing acute, likely chronic. Formal imaging not yet resulted. <Jorge Huff MD - Last Filed: 10/07/24 23:51> Vital Signs: 10/07/24 19:22 10/07/24 20:38 10/07/24 22:45 Temperature 98.4 F 98.9 F Temperature Source Oral Oral Pulse Rate 76 64 Pulse Rate [Right] 79 Respiratory Rate 16 18 16 Blood Pressure 152/93 H 134/68 Blood Pressure [Right Arm] 130/73 Blood Pressure Mean [Right Arm] 92 Blood Pressure Source Automatic Cuff Blood Pressure Source [Right Arm] Automatic Cuff Blood Pressure Position Sitting Sitting Blood Pressure Position [Right Arm] Sitting 02 Sat by Pulse Oximetry 97 97 Oxygen Delivery Method Room Air Room Air Room Air Orders (Tests/Meds): ED MEDICATIONS Discontinued Medications Generic Name Dose Route Start Last Admin Trade Name Freq PRN Reason Stop Dose Admin Hydrocodone Bitart/Acetaminophen 2 tab 10/07/24 20:19 10/07/24 20:31 Hydrocodone/Apap 5/325 Mg Tablet PO 10/07/24 20:20 2 tab ONCE ONE Administration Methylprednisolone Acetate 80 mg 10/07/24 20:20 10/07/24 20:31 Methylprednisolone Acetate 80mg/Ml Vial IM 10/07/24 20:21 80 mg ONCE ONE Administration ORDERS Category Date Time Status CT cervical spine wo con Stat Cat Scan 10/07/24 20:[address] thoracic spine wo con Stat Cat Scan 10/07/24 20:15 Completed XR chest portable Stat Exams 10/07/24 20:16 Completed Medical Decision Narrative: Insert review patient is a 54-year-old male presenting to the emergency department for evaluation of neck pain causing bilateral hand numbness. Patient is hemodynamically stable and nontoxic-appearing upon arrival, afebrile. Differential diagnosis includes degenerative disease, injury, spinal stenosis among others. Workup will be conducted with CT scans of spine and pain meds. Initial inventions include pain meds and imaging. Imaging informally interpreted by me and remarkable for nothing acute, likely chronic. Formal imaging not yet resulted. JS attestation I was consulted by the JS, and we discussed the complexity of problems being addressed. I approved the treatment and management plan for this patient's care in the emergency department, thus performing a substantial portion of the medical decision making. CT imaging was independently interpreted by me, revealing of chronic degenerative changes in the patient's cervical and thoracic spine but no acute pathology. Patient had a normal neurological exam. He is to follow-up with his PCP for an outpatient MRI. Ultimately discharged in stable condition. Jorge Huff MD Critical Care <Cheryl Ansari (ED), CHILDREN'S AIDE - Last Filed: 10/07/24 21:55> Critical Care Time Critical Care Time: No
[2024-10-07 22:45] VITALS: BP 134/68; PULSE 64; RESP 16; TEMP 37.2; O2SAT 98
== END 2024-10-07 22:46 | disposition home or self-care (01) ==
PROVIDERS: Emergency Provider Student in an Organized Health Care Education/Training Program; PCP Family Medicine
DX: M50.30 Other cervical disc degeneration, unspecified cervical region (principal); M51.34 Other intervertebral disc degeneration, thoracic region; R20.2 Paresthesia of skin; G89.29 Other chronic pain; M54.50 Low back pain, unspecified; M21.961 Unspecified acquired deformity of right lower leg; I10 Essential (primary) hypertension; E78.5 Hyperlipidemia, unspecified; F17.210 Nicotine dependence, cigarettes, uncomplicated; Z99.89 Dependence on other enabling machines and devices
CPT/HCPCS: 71045; 72125; 72128; 96372; 99284; J1010

== ENCOUNTER 2025-01-06 01:59 | Emergency (ER) | payer MEDICAID, SELFPAY ==
[2025-01-06] VITALS (10 sets, daily range): BP systolic 102–142; BP diastolic 62–92; PULSE 59–81; RESP 12–20; TEMP 36.9; O2SAT 95–98; BMI 25.8
--- NOTE | 2025-01-06 02:00 | ED_ITS ---
Discharge Plan Disposition Patient Disposition: Home, Self-Care Prescriptions Prescriptions: No Action prednisone 20 mg tablet 40 mg PO DAILY 5 Days Qty: 10 0RF meloxicam 7.5 mg tablet 7.5 mg PO DAILY Qty: 14 0RF Referrals Follow up/Referrals: Chetan Yao MD [Primary Care Provider, Medical] - See instructions Activity Restrictions/Add. Instructions Additional Instructions/Restrictions: Please follow-up with your retail event and sales assistant. Please follow-up with your primary care provider. Please return to the emergency department if you develop any new or worsening symptoms or become concerned for your health. Clinical Impressions Clinical Impression: Atypical chest pain, Dyspnea Print Language Print Language: Kazakh Discharge ED Provider: Ezekiel Hernandez General Adult HPI General Chief complaint: Shortness of Breath/Dyspnea Stated complaint: trouble breathing Time Seen by Provider: 01/06/25 02:00 History of Present Illness HPI narrative: 54-year-old male of hypertension hyperlipidemia COPD coronary artery disease presents for shortness of breath for the last couple days with associated central chest pressure, reports pain with deep inspiration. He reports this has happened before. He denies fever at home. Denies any abdominal pain nausea vomiting. Related Data Previous Rx's ?Medication ?Instructions ?Recorded meloxicam 7.5 mg tablet 7.5 mg PO DAILY #14 tabs prednisone 20 mg tablet 40 mg (2 x 20 mg) PO DAILY 5 days 10/07/24 #10 tabs Allergies Allergy/AdvReac Type Severity Reaction Status Date / Time No Known Allergies Allergy Verified 07/27/24 10:38 [facility] Disclaimer: The information contained in this section may have been updated after the patient was seen, as this information can be updated by other users. Medical History Dyspnea Encounter for screening for malignant neoplasm of lung Smoking greater than 30 pack years Abnormal findings on diagnostic imaging of heart and coronary circulation Smoker Syncope History of back pain Hyperlipidemia Hypertension Family History Other No significant family history Social History Smoking Status: Current every day smoker smoking status start date: 1983 years smoked: 40 quit status: not considering quitting alcohol intake: never substance use type: denies use current occupational status: unemployed and disabled Travel in the last 8 weeks?: None household members: significant other marital status: life partner service: No senior living: No caffeine: Yes physical activity: walking Have you lived/traveled outside US in past 30 days?: No Contact w/someone who lives/traveled outside US past 30 days?: No Exposure to someone with infectious disease in past 14 days?: No Do you have a fever (greater than 100.4 F or 38 C)?: No Have you tested positive for COVID-19?: No Exposed to someone with COVID-19 in past 14 days?: No Do you have a sore throat?: No Do you have a cough?: No Do you have any weakness?: No Do you have any diarrhea?: No Are you experiencing any unusual bleeding?: No Do you have any muscle aches/pain?: No Do you have any abdominal pain?: No Are you experiencing loss of taste or smell?: No Other Medical History Have you received the Flu Vaccine for this season: No Have you received the Pneumonia Vaccine: Yes ROS Obtained: Yes All systems reviewed & no additional complaints except as documented Physical Exam General General appearance: alert and in no apparent distress Head Head exam: atraumatic and normocephalic Eye Eye exam: Present normal appearance, PERRL and EOMI ENT ENT exam: Present normal oropharynx and normal external ear exam Neck Neck exam: Present normal inspection and full ROM Chest Chest inspection: Present normal inspection and symmetric chest wall rise; Absent tenderness Respiratory Respiratory exam: Present normal lung sounds bilaterally; Absent respiratory distress Cardiovascular Cardiovascular exam: Present regular rate and normal rhythm Abdominal Exam Abdominal exam: Present soft; Absent distention, tenderness or guarding Extremities Exam Extremities exam: Present normal inspection; Absent edema or joint swelling Back Exam Back exam: Present normal inspection; Absent tenderness Neurological Exam Neurological exam: Present alert and oriented X3; Absent motor sensory deficit Psychiatric Psychiatric exam: Present normal affect and normal mood Skin Skin exam: Present warm, dry and normal color Lymphatic Lymphatic Findings: no adenopathy Medical Decision Making Medical Records Medical records reviewed: Yes I reviewed the patient's medical records. Screening: Per USPSTF and CDC recommendations, given the prevalence of disease in our region, it is our hospital?s policy to screen for HIV and viral Hepatitis for all patients aged 18 and over and those with ongoing risk factors. Dixon Inquiry Pt receiving controlled substance: No Dixon was queried for this patient: No Vital Signs: 01/06/25 02:06 01/06/25 02:30 01/06/25 03:01 Temperature 98.4 F Temperature Source Temporal Artery Scan Pulse Rate 67 75 Pulse Rate [Right] 80 Respiratory Rate 20 15 12 Blood Pressure 142/88 H 134/80 Blood Pressure [Right Arm] 139/92 H Blood Pressure Mean Blood Pressure Mean [Right Arm] 107 Blood Pressure Source Blood Pressure Position 02 Sat by Pulse Oximetry 97 97 96 Oxygen Delivery Method Room Air Room Air Room Air 01/06/25 03:31 01/06/25 04:00 01/06/25 04:30 Temperature Temperature Source Pulse Rate 71 81 62 Pulse Rate [Right] Respiratory Rate 17 12 16 Blood Pressure 121/72 121/78 119/70 Blood Pressure [Right Arm] Blood Pressure Mean Blood Pressure Mean [Right Arm] Blood Pressure Source Blood Pressure Position 02 Sat by Pulse Oximetry 97 96 96 Oxygen Delivery Method Room Air Room Air Room Air 01/06/25 05:00 01/06/25 05:30 01/06/25 06:00 Temperature Temperature Source Pulse Rate 75 63 59 L Pulse Rate [Right] Respiratory Rate 16 13 14 Blood Pressure 122/78 111/72 102/62 L Blood Pressure [Right Arm] Blood Pressure Mean 84 76 Blood Pressure Mean [Right Arm] Blood Pressure Source Blood Pressure Position 02 Sat by Pulse Oximetry 95 96 95 Oxygen Delivery Method Room Air 01/06/25 06:31 Temperature 98.4 F Temperature Source Pulse Rate 63 Pulse Rate [Right] Respiratory Rate 16 Blood Pressure 102/62 L Blood Pressure [Right Arm] Blood Pressure Mean Blood Pressure Mean [Right Arm] Blood Pressure Source Automatic Cuff Blood Pressure Position Sitting 02 Sat by Pulse Oximetry Oxygen Delivery Method Room Air Lab Data Lab results reviewed: Yes I reviewed the patient's lab results. Lab Results 01/06/25 02:07: WBC 10.1, RBC 4.61, Hgb 15.3, Hct 45.6, MCV 98.9 H, MCH 33.2 H, MCHC 33.6, RDW 13.6, Plt Count 270, MPV 10.1, Neut % (Auto) 60.8, Lymph % (Auto) 24.4, Hopkins % (Auto) 7.7, Eos % (Auto) 5.5, Baso % (Auto) 1.2, Neut # (Auto) 6.1, Lymph # (Auto) 2.5, Hopkins # (Auto) 0.8, Eos # (Auto) 0.6 H, Baso # (Auto) 0.1, D- Dimer 0.61 H, Sodium 139, Potassium 3.8, Chloride 100, Carbon Dioxide 29, Anion Gap 13.8, BUN 35 H, Creatinine 1.40 H, Estimated Creat Clear 69, Estimated GFR 53 L, Est GFR ( Amer) 64, Glucose 105 H, Calcium 9.7, Total Bilirubin 0.6, AST 27, ALT 21, Alkaline Phosphatase 86, Troponin I < 0.01, NT-Pro-B Natriuret Pep < 20.0, Total Protein 7.2, Albumin 4.4, Globulin 2.8, Albumin/Globulin Ratio 1.6, Lipase 88 01/06/25 05:00: Troponin I < 0.01 01/06/25 02:07 01/06/25 02:07 Orders (Tests/Meds): ED MEDICATIONS Discontinued Medications Generic Name Dose Route Start Last Admin Trade Name Freq PRN Reason Stop Dose Admin Acetaminophen 1,000 mg 01/06/25 02:08 01/06/25 02:30 Acetaminophen 500mg Tab PO 01/06/25 02:09 1,000 mg ONCE ONE Administration Aspirin 324 mg 01/06/25 02:08 01/06/25 02:30 Aspirin 81mg Chewable Tablet PO 01/06/25 02:09 324 mg ONCE ONE Administration Belladonna Alkaloids 60 ml 01/06/25 02:08 01/06/25 02:30 Belladonna Alkaloids 60 Ml Ml PO 01/06/25 02:09 60 ml ONCE ONE Administration Iopamidol 70 ml 01/06/25 03:23 01/06/25 03:24 Iopamidol-370 (76%);100ml Bottle IV 01/06/25 03:24 70 ml ONCE ONE Administration Sodium Chloride 40 ml 01/06/25 03:23 01/06/25 03:24 0.9 % Sodium Chloride 50 Ml Vial IV 01/06/25 03:24 40 ml ONCE ONE Administration Sodium Chloride 10 ml 01/06/25 03:23 01/06/25 03:24 Sodium Chloride 0.9% 10ml Syr (Rad Only) IV 02/05/25 03:22 10 ml NEEDED PRN Administration Maintain IV Site ORDERS Category Date Time Status CT angio chest PE protocol Stat Cat Scan 01/06/25 02:55 Completed CXR --portable [XR chest portable] Stat Exams 01/06/25 02:08 Completed BNP [NT Pro Brain Natriuretic Pep.] Stat Lab 01/06/25 02:07 Completed CBC w/Auto Diff [Complete Blood Count Auto Diff] Stat Lab 01/06/25 02:07 Completed CMP [Comprehensive Metabolic Panel] Stat Lab 01/06/25 02:07 Completed D-Dimer Stat Lab 01/06/25 02:07 Completed Lipase Stat Lab 01/06/25 02:07 Completed Troponin I Q3H Lab 01/06/25 02:07 Completed Troponin I Q3H Lab 01/06/25 05:00 Completed ECG Data Tracing #1: I reviewed this ECG and interpreted as documented below: ECG initial impression date: 01/06/25 ECG initial impression time: 02:07 ECG normal with no acute: arrhythmias, ischemia, conduction abnormalities, chamber hypertrophy HEART Score History (anamnesis): Moderately suspicious ECG: Normal Age: 45-65 years Risk factors: Atherosclerosis history Troponin: </= normal limit HEART Score: 4 Medical Decision Narrative: 54-year-old male with history of coronary artery, PD, hypertension presents for shortness of breath and chest tightness over the last few days. History was obtained via interactive discussion with patient, chart review. On arrival, patient is [afebrile, hemodynamically stable, satting appropriately, alert, oriented x4, GCS 15], moving all extremities spontaneously. Full physical exam performed and significant for no significant physical exam abnormalities. Differential includes but is not limited to ACS, PE, pneumonia, COPD exacerbation. Patient was given aspirin, Tylenol, GI cocktail for symptomatic management and correction of underlying abnormalities. Workup initiated including CBC CMP D- dimer (cannot PERC out secondary to age) troponin EKG chest x-ray. On re-evaluation, patient [remains afebrile, HD stable.] Laboratory workup independently interpreted by me and significant for negative initial troponin, D-dimer elevated (CT PE ordered, no significant leukocytosis, mildly elevated creatinine.. Imaging independently interpreted by me and significant for clear lungs bilaterally without focal opacity, no evidence of PE. See radiology read for full review of final results. Patient was placed in ED observation status for serial cardiac monitoring and cardiac enzymes On further reassessment, patient roderick hemodynamically stable, satting appropriately and on room air. Patient reports some symptomatic improvement. Repeat troponin returns undetectably low. Given negative cardiac workup and CT imaging, low concern for emergent pathology at this time. Given this, patient was deemed appropriate discharged with outpatient management. Recommend patient follow-up with retail event and sales assistant and PCP for further assessment. Procedures Risk/Benefits of Procedure(s) Were Explained: Yes Critical Care Critical Care Time Critical Care Time: No
--- NOTE | 2025-01-06 02:07 | ECG_ITS ---
APPROVED REPORT Exam: Resting ECG HR:75 bpm ECG Measurements Heart Rate [address] 154 P 69 QRSd 80 QRS -1 QT 353 T 17 QTc 381 Conclusion SINUS RHYTHM NORMAL ECG UNCONFIRMED REPORT Electronically signed by : NILSA GATICA, 01/06/2025 06:32:43
--- OUTSIDE RECORDS SUMMARY | 2025-01-06 02:07 | XMS_ITS | Encounter Summary ---
Author Organization [place] [address] Care Team Providers Care Machinery Mechanic Name Role Phone Chetan Yao MD Primary Care Provider [phone] Reason for Visit * Reason Onset Date Comments Central Order Completion Outreach 12/14/2024 LDCT Encounter Details Date Type Department Care Team (Late st Contact Info) Description 12/14/2024 Patient Outreach SEP [facility] [address] [place] [address] [place] [address] Central Order Completion Outreach (LDCT) Social History Tobacco Use Types Packs/Day Years Used Date Smoking Tobacco: Every Day Cigarettes 1.5 30 Smokeless Tobacco: Never Alcohol Use Standard Drinks/Week Comments No 0 (1 standard drink = 0.6 oz pure alcohol) not currentlly former heavy drinkert Overall Financial Resource Strain (CARDIA) Answe r Date Recorded How hard is it for you to pa y for the very basics like food, housing, medical care, and heating? Somewhat hard 12/14/2022 PHQ-2 Answer Date Recorded PHQ-2 Total Score 0 12/30/2020 [facility] Occupational Stress Questionnaire Answer Date Recorded Do you feel stress - tense, restless, nervous, or anxious, or unable to sleep at night because your mind is troubled all the time - these days? Only a little 12/14/2022 Hunger Vital Sign Answer Date Recorded Within the past 12 months, y ou worried that your food would run out before you got the money to buy more. Never true 12/15/19 23 Within the past 12 months, t he food you bought just didn't last and you didn't have money to get more. Never true 12/14/2022 Sex and Gender Information Value Date Recorded Sex Assigned at Not on file Legal Sex Male 2:55 AM EDT Gender Identity Not on file Sexual Orientation Not on file documented as of this encounter Functional Status * Is the person deaf or does he/she have serious difficulty hearing? Answer Date of Assessment Author No 12/30/2020 8:03 AM Whitney Lima CCMA * Is the person blind or does he/she have serious difficulty seeing even when wearing glasses? Answer Date of Assessment Author No 12/30/2020 8:03 AM Whitney Lima CCMA * Does this person have serious difficulty walking or climbing stairs? Answer Date of Assessment Author No 12/30/2020 8:03 AM Whitney Lima CCMA * Does this person have difficulty dressing or bathing? Answer Date of Assessment Author No 12/30/2020 8:03 AM Whitney Lima CCMA * Because of a physical, mental or emotional condition, does this person have difficulty doing errands alone such as visiting a doctor's office or shopping? Answer Date of Assessment Author No 12/30/2020 8:03 AM Whitney Lima CCMA documented as of this encounter Mental Status * Because of a physical, mental or emotional condition, does this person have serious difficulty concentrating, remembering or making decisions? Answer Entry Date Author No 12/30/2020 8:03 AM Whitney Lima CCMA documented in this encounter Progress Notes * Victoria Wang RN - 12/19/2024 2:46 PM EDT SEP Order Completion Outcome Tracking Contact Attempt:: Final LDCT Outcome:: No Answer, Unable to Reach Voicemail is not set up * Amalia Hatch, DARRELL - 12/14/2024 9:39 AM EDT SEP Order Completion Outcome Tracking Contact Attempt:: First LDCT Outcome:: No Answer, Unable to Reach Voicemail not set up documented in this encounter Plan of Treatment Not on file documented as of this encounter Goals Goal Patient Goal Type Associated Problems Recent Progress Patient-Stated? Author Blood Pressure < 140/90 Blood Pressure 122/80(02/20 1:53 PM EDT) No Koki Garcia, DO Maintain a healthy diet, exercise regularly and maintain an ideal body weight General No Noa Camarillo LPN Patient will complete [facility] Financial assistance application and mail in by the end of December General Yes Nereida Boss RN Patient will utilize [employer] and attend his appointment January 2023 to apply for disability/insur [facility] Yes Nereida Boss RN Stay Tobacco Free Lifestyle No Noa Camarillo LPN documented as of this encounter Visit Diagnoses Not on filedocumented in this encounter Care Teams Machinery Mechanic Relationship Specialty Start Date End Date Chetan Yao MD [address] [place] [id number] PCP - General Family Medicine 10/17/13 documented as of this encounter
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
--- NOTE | 2025-01-06 02:08 | XR_ITS ---
PROCEDURE INFORMATION: Exam: XR Chest Exam date and time: 01/06/2025 2:20 AM Age: 54 years old Clinical indication: Pain; Shortness of breath; Left-sided; Additional info: KG Sanchez TECHNIQUE: Imaging protocol: Radiologic exam of the chest. Views: 1 view. COMPARISON: CR XR CHEST PORTABLE 10/07/2024 8:28 PM FINDINGS: Lungs: There is mild stable elevation of the right hemidiaphragm. Granuloma in the left lower lobe is stable. The lungs appear otherwise clear. No focal areas of consolidation. Pleural spaces: No pleural effusions. Negative for pneumothorax. Heart/Mediastinum: Cardiac silhouette and pulmonary vasculature are within range of normal. Bones/joints: There is no evidence of acute fracture. The thoracic spine demonstrates mild degenerative changes at multiple levels. IMPRESSION: 1. Negative for an acute cardiopulmonary abnormality. 2. Stable chest radiograph.
[2025-01-06] MEDS: BELLADONNA ALKALOIDS 60 ML ML PO (02:30)
[2025-01-06] MEDS: ACETAMINOPHEN 500MG TAB 1000 MG PO (02:30)
[2025-01-06] MEDS: ASPIRIN 81MG CHEWABLE TABLET 324 MG PO (02:30)
[2025-01-06 02:31] LABS: Basophils # 0.1 K/mm3 (0-0.2); Basophils % 1.2 % (0.1-2.0); Eosinophils # 0.6 Kmm3 (0.0-0.4); Eosinophils % 5.5 % (0.1-12.0); Hematocrit 45.6 % (42.0-52.0); Hemoglobin 15.3 g/dL (14.1-18.0); Immature Granulocytes # 0.04 10^3uL; Immature Granulocytes % 0.4 %; Lymphocytes # 2.5 K/mm3 (0.7-4.5); Lymphocytes % 24.4 % (10-50); Mean Corpuscular HGB Conc 33.6 g/dL (31.8-35.4); Mean Corpuscular Hemoglobin 33.2 pg (27.0-31.2); Mean Corpuscular Volume 98.9 fl (80-94); Mean Platelet Volume 10.1 fl (7.4-10.4); Monocytes # 0.8 K/mm3 (0.1-1.0); Monocytes % 7.7 % (1.7-9.3); Neutrophils # 6.1 K/mm3 (1.8-7.8); Neutrophils % 60.8 % (37.0-80.0); Nucleated Red Blood Cells # 0 10^3/uL; Nucleated Red Blood Cells % 0 %; Platelet Count 270 K/mm3 (142-424); Red Blood Count 4.61 M/mm3 (4.60-6.20); Red Cell Distribution Width 13.6 % (11.5-17.5); Red Cell Distribution Width-SD 49.1 fL; White Blood Count 10.1 K/mm3 (4.8-10.8)
[2025-01-06 02:36] LABS: Alanine Aminotransferase 21 U/L (12-78); Albumin Level 4.4 g/dl (3.5-5.0); Albumin/Globulin Ratio 1.6 (1.1-1.8); Alkaline Phosphatase 86 U/L (38-126); Anion Gap 13.8 mEq/L (5-15); Aspartate Amino Transferase 27 U/L (17-59); Bilirubin,Total 0.6 mg/dl (0.2-1.3); Blood Urea Nitrogen 35 mg/dl (9-20); Calcium 9.7 mg/dl (8.4-10.2); Carbon Dioxide 29 mmol/L (22.0-30.0); Chloride 100 mmol/L (98-107); Creatinine Clearance Estimated 69 mL/min (50-200); Estimated Glomerular Filt Rate 53 ml/min (>60); GFR (African American) 64 ML/MIN (>60); Globulin 2.8 g/dL (1.3-3.2); Glucose 105 mg/dl (74-100); Lipase 88 U/L (23-300); Potassium 3.8 mmoL/L (3.5-5.1); Sodium 139 mmol/L (136-145); Total Protein,Serum 7.2 g/dl (6.3-8.2)
[2025-01-06 02:41] LABS: D-Dimer 0.61 ug/mL (0.0-0.5)
[2025-01-06 02:49] LABS: NT Pro Brain Natriuretic Pep. < 20.0 pg/mL (0-125)
[2025-01-06 02:52] LABS: Troponin I < 0.01 ng/ml (0.00-0.034)
--- NOTE | 2025-01-06 02:55 | CT_ITS ---
PROCEDURE INFORMATION: Exam: CTA Chest With Contrast Exam date and time: 01/06/2025 3:08 AM Age: 54 years old Clinical indication: Pain and abnormal findings; Abnormal diagnostic tests; Elevated d-dimer; Shortness of breath; Left-sided; Additional info: Cp, SOA, positive dimer TECHNIQUE: Imaging protocol: Computed tomographic angiography of the chest with contrast. Exam focused on the arteries. 3D rendering (Not supervised by radiologist): MIP and/or 3D reconstructed images were created by the technologist. Radiation optimization: All CT scans at this facility use at least one of these dose optimization techniques: automated exposure control; mA and/or kV adjustment per patient size (includes targeted exams where dose is matched to clinical indication); or iterative reconstruction. Contrast material: ISOUVE 370; Contrast volume: 70 ml; Contrast route: INTRAVENOUS (IV); COMPARISON: CR XR CHEST PORTABLE 01/06/2025 2:20 AM FINDINGS: Pulmonary arteries: There is heterogeneous contrast attenuation of visualized pulmonary arteries, more pronounced in the subsegmental vessels and likely related to contrast bolus. This limits the detection of pulmonary emboli in the small and peripheral pulmonary arterial branches. As seen, no large or central pulmonary emboli. Aorta: The aorta demonstrates mild atherosclerotic calcification. Thyroid: The visualized thyroid gland is normal. Lungs: There are a few punctate pulmonary parenchymal calcifications consistent with remote granulomatous organism exposure. No focal areas of consolidation. There is a 4 mm nodule in the left upper lobe seen on series 1003, image 63. There is a 2.7 mm nodule in the lateral left upper lobe seen on series 1003, image 88. Pleural spaces: There are no pleural effusions. There is no evidence of pneumothorax. Heart: The heart is not enlarged. There is no evidence of pericardial fluid collections. Lymph nodes: There is no evidence of pathologic adenopathy. Diaphragm: There is mild elevation of the right hemidiaphragm. Stomach: Apparent mild gastric mural thickening could be on the basis of incomplete distension but cannot exclude gastritis or other inflammatory or infiltrative process. Correlate clinically. The remainder of the visualized intra-abdominal structures are normal. Bones/joints: The thoracic spine demonstrates mild degenerative changes at multiple levels. Periarticular hypertrophic changes involve the right sternoclavicular joint may reflect sequela of remote injury or degenerative change. The visualized lower cervical spine demonstrates moderate discogenic and spondylitic degenerative changes. There are mild degenerative changes of the shoulder joints bilaterally. There is no evidence of acute fracture. Soft tissues: Unremarkable. IMPRESSION: 1. Heterogeneous contrast attenuation of visualized pulmonary arteries limits the detection of pulmonary emboli in the small and peripheral pulmonary arterial branches. As seen, no large or central pulmonary emboli. 2. Apparent mild gastric mural thickening could be on the basis of incomplete distension but cannot exclude gastritis or other inflammatory or infiltrative process. Correlate clinically. 3. Two small nodules within the left upper lobe. For patients at low risk (minimal or absent history of smoking and of other known risk factors), no routine follow-up is indicated. For patients at high risk (history of smoking or of other known risk factors), consider optional CT Chest at 12 months. (Reference: Mirian) References: Lulihoshadia H, et al. Guidelines for Management of Incidental Pulmonary Nodules Detected on CT Images: From the Fleischner Society 2017. Radiology. 2017;284(1):228-243.
[2025-01-06] MEDS: SODIUM CHLORIDE 0.9% 10ML SYR (RAD ONLY) 10 ML IV (03:24)
[2025-01-06] MEDS: IOPAMIDOL-370 (76%);100ML BOTTLE 70 ML IV (03:24)
[2025-01-06] MEDS: 0.9 % SODIUM CHLORIDE 50 ML VIAL 40 ML IV (03:24)
[2025-01-06 06:21] LABS: Troponin I < 0.01 ng/ml (0.00-0.034)
== END 2025-01-06 06:33 | disposition home or self-care (01) ==
PROVIDERS: Emergency Provider Emergency Medicine; PCP Family Medicine
DX: R07.1 Chest pain on breathing (principal); R06.02 Shortness of breath; I25.10 Atherosclerotic heart disease of native coronary artery without angina pectoris; I10 Essential (primary) hypertension; E78.5 Hyperlipidemia, unspecified; F17.210 Nicotine dependence, cigarettes, uncomplicated; J44.9 Chronic obstructive pulmonary disease, unspecified
CPT/HCPCS: 71045; 71275; 80053; 83690; 83880; 84484; 85025; 85378; 93005; 99285; Q9967

== ENCOUNTER 2025-01-25 14:34 | Outpatient (CLI) | payer MEDICAID, SELFPAY ==
--- OUTSIDE RECORDS SUMMARY | 2025-01-25 14:37 | XMS_ITS | Encounter Summary ---
Author Organization [place] [address] Care Team Providers Care Flat Sorting Machine Clerk Name Role Phone Chetan Yao MD Primary Care Provider [phone] Reason for Visit * Reason Onset Date Comments Central Order Completion Outreach 12/14/2024 LDCT Encounter Details Date Type Department Care Team (Late st Contact Info) Description 12/14/2024 Patient Outreach [facility]P [facility] [address] [place] [address] Chetan Yao MD [place] [address] Central Order Completion Outreach (LDCT) Social [...] Date Recorded PHQ-2 Total Score 0 12/30/2020 [facility] - Occupational Stress Questionnaire Answer Date Recorded [...] No Noa Camarillo LPN Patient will complete [employer] assistance application and mail in by the end of December General Yes Nereida Boss RN Patient will utilize [employer] and attend his appointment January 2023 to apply for disability/insur [facility] Yes Nereida Boss RN Stay Tobacco Free Lifestyle No Noa Camarillo LPN documented as of this encounter Visit Diagnoses Not on filedocumented in this encounter Care Teams Flat Sorting Machine Clerk Relationship Specialty Start Date End Date Chetan Yao MD [address] [employer] [address] [place] [id number] PCP - General Family Medicine 10/17/13 documented as of this encounter
--- OUTSIDE RECORDS SUMMARY | 2025-01-25 14:37 | XMS_ITS | Encounter Summary ---
Author Organization [facility] [place] [address] Care Team Providers Care Railroad Wheels And Axles Inspector Name Role Phone Chetan Yao MD Primary Care Provider [phone] Reason for Visit * Reason Comments Medication Refill Encounter Details Date Type Department Care Team (Late st Contact Info) Description 01/24/2025 Refill [facility] [place] [address] [place] [address] Chetan Yao MD [facility] [place] [address] Medication Refill Social History Tobacco Use Types Packs/Day Years [...] Date Recorded PHQ-2 Total Score 0 12/30/2020 [facility] [place] of Occupat ional Health - Occupational Stress [...] Whitney Lima CCMA documented in this encounter Ordered Prescriptions Prescription Sig Dispense Quantity Refills Last Filled Start Date End Date atorvastatin (LIPITOR) 40 mg Oral Tablet Take 1 Tablet by mouth daily. 30 Tablet 01/25/2025 lisinopriL (PRINIVIL;ZESTRIL) 20 mg Oral Tablet tablet Take 1 Tablet by mouth daily. 30 Tablet 01/25/2025 documented in this encounter Miscellaneous Notes * Telephone Encounter - Corrine Powers CPhT - 01/25/2025 6:42 AM EDT lisinopriL Future Visit: na Last Assessed Visit: 02/21/24 Follow-Up: 02/20/25 This patient requires the following labs/vitals. Routing to the office. Abnormal serum potassium OR potassium not on file within 6 months and Serum creatinine (6 months) atorvastatin Future Visit: na Last Assessed Visit: 02/21/24 Follow-Up: 02/20/25 This patient requires the following labs/vitals. Routing to the office. Lipid panel (12 months) documented in this encounter Plan of Treatment Not on file documented as of this encounter Goals Goal Patient Goal Type Associated Problems Recent Progress Patient-Stated? Author Blood Pressure < 140/90 Blood Pressure 122/80(02/20 1:53 PM EDT) No Koki Garcia, DO Maintain a healthy diet, exercise regularly and maintain an ideal body weight General No Noa Camarillo LPN Patient will complete [employer] assistance application and mail in by the end of December [facility] Yes Nereida Boss RN Patient will utilize [employer] and attend his appointment January 2023 to apply for disability/insur [facility] Yes Nereida Boss RN Stay Tobacco Free Lifestyle No Noa Camarillo LPN documented as of this encounter Visit Diagnoses Not on filedocumented in this encounter Discontinued Medications Medication Sig Discontinue Reason Start Date End Da te atorvastatin (LIPITOR) 40 mg Oral Tablet Take 1 Tablet by mouth daily. 02/21/2024 01/25/2025 lisinopriL (PRINIVIL;ZESTRIL) 20 mg Oral Tablet tablet Take 1 Tablet by mouth daily. 02/21/2024 01/25/2025 documented as of this encounter Care Teams Railroad Wheels And Axles Inspector Relationship Specialty Start Date End Date Chetan Yao MD [address] [place] [address] PCP - General Family Medicine 10/17/13 documented as of this encounter
--- OUTSIDE RECORDS SUMMARY | 2025-01-25 14:37 | XMS_ITS | Clinical Summary ---
Author Organization [facility] Address [address] [place] [address] Phone Care Team Providers Care Elevator Erector Name Role Phone Chetan Yao MD Primary Care Provider [phone] Allergies Active Allergy Reactions Criticality Noted Date Comments Radha Knox High 09/26/2010 Medications aspirin (ASPIRIN) 81 mg Oral Tablet, ChewableIndicati ons:Right arm weakness Take 1 Tablet by mouth daily. 30 Tablet 11 2 Active Blood Pressure Monitor [facility] KitIndications:E ssential hypertension 1 Each by [facility].(Non- Drug; Combo Route) route daily. 1 Kit 2 Active amLODIPine (NORVASC) 5 mg Oral TabletIndication s:Essential hypertension Take 1 Tablet by mouth daily. 90 Tablet 3 4 Active gabapentin (NEURONTIN) 300 mg Oral Capsule Take 300 mg by mouth 3 times daily. 4 Active metoprolol succinate (TOPROL-XL) 25 mg Oral Tablet Sustained Release 24 hr TAKE 1 TABLET BY MOUTH ONCE DAILY 100 Tablet 1 5 Active lisinopriL (PRINIVIL;ZESTRI L) 20 mg Oral Tablet tablet Take 1 Tablet by mouth daily. 30 Tablet 5 Active atorvastatin (LIPITOR) 40 mg Oral Tablet Take 1 Tablet by mouth daily. 30 Tablet 5 Active atorvastatin (LIPITOR) 40 mg Oral Tablet Take 1 Tablet by mouth daily. 90 Tablet 3 4 025 Discontinued lisinopriL (PRINIVIL;ZESTRI L) 20 mg Oral Tablet tablet Take 1 Tablet by mouth daily. 90 Tablet 3 4 025 Discontinued Active Problems Patient Care Coordination No te Formatting of this note migh t be different from the original. [facility] - Timo Rivas MD Interventional Pain Protocol: Peggy report completed (EVERY 3 MONTHS) ( 12/02/22 ) Pharmacy: [facility] [place] [address] [address] [facility] [phone] Problem Noted Date Diagnosed Date Marijuana use [...] your drinking? no Ever need an eye beam worker in the morning? no Screening for depression [...] Encounters Date Type Department Care Team Description 01/24/2025 Refill [facility] [address] [place] [address] Chetan Yao MD Medication Refill 12/14/2024 Patient Outreach [facility] [address] [facility] [address] [place] [address] Chetan Yao MD Central Order Completion Outreach (LDCT) from Last 3 Months Immunizations Immunization Administration Dates Next Due DT 11/01/2009 Influenza Intradermal 04/26/2012 Pneumococcal Conjugate Vaccine 20 Valent 022 Pneumococcal Polysaccharide 23 Valent 05/13/2017 Tdap 12/31/2021 Surgical History Surgery Date Site/Laterality Comments ABDOMEN SURGERY as an FRACTURE SURGERY left elbow Medical History Medical [...] Date Recorded PHQ-2 Total Score 0 12/30/2020 [facility] [place] of Occupat ional Health - Occupational Stress [...] exists Colon Cancer Screening 03/09/2025 Influenza Vaccine (#1) 2025 7 (Declined), 09/27/2014 (Declined), 04/26/2012 DTaP/TDaP/Td (3 - [...] No Noa Camarillo LPN Patient will complete [employer] assistance application and mail in by the end of December General Yes Nereida Boss RN Patient will utilize [employer] and attend his appointment January 2023 to apply for disability/insur [facility] Yes Nereida Boss RN Stay Tobacco [...] contact the office of the ordering clinician. [email or web address] Narrative 11/22/2023 4:[address] LUNG CANCER SCREENING LOW DOSE 11/22/2023 4:20 PM CLINICAL HISTORY: Asymptomatic patient meeting NCCN high risk criteria for lung screening. F17.210-Nicotine dependence, cigarettes, wzramjdtnqnen-[id number]-CM. COMPARISON: None. PROCEDURE COMMENTS: Noncontrast, low-dose, multidetector CT chest per department protocol. Interactive 3-D postprocessing done by the reviewing physician on a [employer] workstation, using Maximum intensity projections (MIPS) and [employer] LUNG CAD for improved lesion detection. Dawkins [...] Continued ANNUAL LOW-DOSE SCREENING CT SCAN (IMG 09375) suggested if age <78. Lung-RADS Modifier N/A: No Modifier Needed Procedure Note Chuck Cheatham MD - 11/22/2023 CT LUNG CANCER SCREENING LOW DOSE 11/22/2023 4:20 PM CLINICAL HISTORY: Asymptomatic patient meeting NCCN high risk criteria forlung screening. F17.210-Nicotine dependence, cigarettes,epkrlukezjteb-GPK-71-CM. COMPARISON: None. PROCEDURE COMMENTS: Noncontrast, low-dose, multidetector CT chest perdepartment protocol. Interactive 3-D postprocessing done by the reviewing physicianon a [employer] workstation, using Maximum intensity projections (MIPS) and [...] nodule(s). Continued ANNUAL LOW-DOSE SCREENING CT SCAN ([facility] [address])suggested if age <78. Lung-RADS Modifier N/A: No Modifier Needed IMPRESSION: Unremarkable low-dose screening chest CT. RECOMMENDATION: Low Dose CT - 1 Yr A summary letter communicating these results will be mailed to thepatient's address of record. - Note: Radiology results need to be interpreted within a comprehensiveclinical context. If you have questions about the radiology report, please contactthe office of the ordering clinician. [email or web address] Chetan Yao MD [facility] CT ORDERABLES Final Res ult * COLOGUARD (03/09/2022 10:45 AM EDT) COLOGUARD CLINICAL REPORT Negative Negative [facility] Comment: NEGATIVE TEST RESULT. A negative [...] screened with both Cologuard and colonoscopy. (Michael Bonner et al, N Engl J Med 2014;370(14):9245-4431) The normal value (reference range) for this assay is negative. COLOGUARD RE-SCREENING RECOMMENDATION: Periodic colorectal cancer screening is an important part of preventive healthcare for asymptomatic individuals at average risk for colorectal cancer. Following a negative Cologuard result, the [place] Cancer Society and U.S. Multi-Society Task Force screening guidelines recommend a Cologuard re-screening interval of 3 years. References: [place] [employer] Guideline for Colorectal Cancer Screening: https://www.cancer.org/cancer/gupdc-afithx-xucoac/loqhsfivp-tcndvyaqw-fwslwzk/ac s-rec ommendations.html.; John Paul GREEN, Gamal VEGA, Mark MEEKS, Colorectal Cancer Screening: Recommendations for Physicians and Patients from the U.S. Multi-Society Task Force on Colorectal Cancer Screening , Am J Gastroenterology 2017; 112:2903-5854. TEST DESCRIPTION: Composite algorithmic analysis of stool [...] Wolfe. et al, N Engl J Med 2014;370(14):0809-4746.) Cologuard may produce a false negative or false positive result (no colorectal cancer or precancerous polyp present at colonoscopy follow up). A negative Cologuard test result does not guarantee the absence of CRC or advanced adenoma (pre-cancer). The current Cologuard screening interval is every 3 years. ([place] [employer] Society and U.S. Multi-Society Task Force). Cologuard performance data in a 10,000 patient pivotal study using colonoscopy as the reference method can be accessed at the following location: www.Playlore.Hyglos/results. Additional description of the Cologuard test process, warnings and precautions can be found at www.cologuard.com. Stool 03/09/2022 10:4 5 AM EDT 03/11/2022 12:16 AM EDT Chetan Yao MD [employer] - ORDERABLES Final Result [facility] [address] [place] [address], [facility] [employer] [facility] [place] [address] from Last 3 Months or Most Recently Relevant to Health Maintenance Insurance [employer] [place] [id number] [employer] [place] [id number] [employer] [place] [address] [facility] [place] [place] [id number] MDR Care Teams Elevator Erector Relationship Specialty Start Date End Date Chetan Yao MD [address] [place] [address] PCP - General Family Medicine 10/17/13
--- OUTSIDE RECORDS SUMMARY | 2025-01-25 14:39 | XMS_ITS | Clinical Summary ---
Author Organization [facility] Phone Care Team Providers Care [place] Gold Attendant Name Role Phone Gabriela Dave Unavailable Conditions or Problems No information available. Medications No information available. Medications Administered No information available. Allergies, Adverse Reactions, Alerts No information available. Results No information available. Plan of Care No information available. Procedures No information available. Vital Signs No information available. Immunizations No information available. Advance Directives No information available.
[2025-01-25 14:46] LABS: Hematocrit 45.4 % (42.0-52.0); Hemoglobin 15.0 g/dL (14.1-18.0); Immature Granulocytes % 0.3 %; Mean Corpuscular HGB Conc 33.0 g/dL (31.8-35.4); Mean Corpuscular Hemoglobin 32.9 pg (27.0-31.2); Mean Corpuscular Volume 99.6 fl (80-94); Nucleated Red Blood Cells % 0 %; Platelet Count 241 K/mm3 (142-424); Red Blood Count 4.56 M/mm3 (4.60-6.20); Red Cell Distribution Width-SD 51.3 fL; White Blood Count 6.7 K/mm3 (4.8-10.8)
[2025-01-25 15:38] LABS: Alanine Aminotransferase 17 U/L (12-78); Albumin Level 4.1 g/dl (3.5-5.0); Alkaline Phosphatase 88 U/L (38-126); Anion Gap 14.4 mEq/L (5-15); Aspartate Amino Transferase 24 U/L (17-59); Bilirubin,Direct 0.2 mg/dl (0.0-0.4); Bilirubin,Indirect 0.4 mg/dL (0.0-0.9); Bilirubin,Total 0.6 mg/dl (0.2-1.3); Bilirubin,Unconjugated 0.4 mg/dL (0.0-1.1); Blood Urea Nitrogen 18 mg/dl (9-20); Calcium 9.7 mg/dl (8.4-10.2); Carbon Dioxide 26 mmol/L (22.0-30.0); Chloride 104 mmol/L (98-107); Cholesterol 127 mg/dl (140-200); Creatinine,Serum 1.00 mg/dl (0.66-1.25); Estimated Glomerular Filt Rate 78 ml/min (>60); GFR (African American) 94 ML/MIN (>60); Glucose 108 mg/dl (74-100); HDL Cholesterol 39 mg/dl (40-60); Magnesium 2.2 mg/dl (1.6-2.3); Potassium 4.4 mmoL/L (3.5-5.1); Sodium 140 mmol/L (136-145); Total Protein,Serum 6.3 g/dl (6.3-8.2); Triglycerides 128 mg/dl (30-150)
[2025-01-25 15:54] LABS: Free T4 (Free Thyroxine) 1.46 ng/dl (0.78-2.19)
[2025-01-25 16:07] LABS: Thyroid Stimulating Hormone 1.07 uIU/mL (0.465-4.68)
== END 2025-01-25 23:59 | disposition home or self-care (01) ==
LOC: LAB.DROPOF 14:35
PROVIDERS: PCP Physician Assistant; Visit Provider Physician Assistant
DX: E78.49 Other hyperlipidemia (principal); R07.89 Other chest pain; R06.09 Other forms of dyspnea; R60.0 Localized edema; I10 Essential (primary) hypertension
CPT/HCPCS: 80048; 80061; 80076; 83735; 84439; 84443; 85025

== ENCOUNTER 2025-06-14 11:19 | Outpatient (CLI) | payer MEDICAID, SELFPAY ==
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
--- OUTSIDE RECORDS SUMMARY | 2025-04-25 07:44 | XMS_ITS | Encounter Summary ---
Author Organization [place] [address] Care Team Providers Care Welding Machine Operator Resistance Name Role Phone Chetan Yao MD Primary Care Provider [phone] Reason for Visit * Physical Therapy (Routine) - Pending Review Specialty Diagnoses / Procedures Referred By Otf linares Referred To Contact Physical Therapy Diagnoses Cervical spondylosis Timo Rivas MD [address] [place] [address] Phone: tel: fax: [facility] Physical Therapy [address] [address] Phone: tel: fax: Referral ID Status Reason Start Date Expiration Date V isits Requested Visits Authorized [id number] Pending Review 03/30/2025 03/30/2026 11 11 Encounter Details Date Type Department Care Team (Latest Contact Info) Description 04/25/2025 8:44 AM EDT - 04/25/2025 11:59 PM EDT Hospital Encounter [facility] Physical Therapy [address] [phone] Moy Seaman PTA Discharge Disposition: Home or [...] Date Recorded PHQ-2 Total Score 0 02/21/2025 [facility] - Occupational Stress [...] 30 Tablet 11 03/26/2022 Blood Pressure [place] [facility] [place] KitIndications:Ess ential hypertension 1 Each [place] [facility]Non[place]; Combo Route) route daily. 1 Kit [...] this encounter Progress Notes * Moy Seaman, LASER TECHNICIAN - 04/25/2025 9:00 AM EDT Images from the original note were not included. Physical Therapy Treatment Note Patient Name: Fernandez Norton : 1970 Visit #: 3 Onset Date: 10/07/24 Diagnosis: Cervical spondylosis Restrictions/Precautions: [place] Physician: Rob OLIVA Follow Up: prn Evaluation Date: 04/09/2025 Reassessment Due: 05/09/25 Primary Insurance: MEDICARE REPLACEMENT/WELLCARE DUAL ACCESS HMO D-SNP Secondary Insurance: [employer] [facility] [id number] [place] Insurance Authorization: AMB REFERRAL TO PHYSICAL THERAPY Authorized (03/30/2025-03/30/2026) Visits Requested Visits Authorized Visits Completed Visits Scheduled 05 22 2 1 Details Referral ID: [id number] Authorization Status Reason: Received Carrier Authorization Authorization Comments: -- Referred To: MADY BORGES PT Referred By: Timo Rivas MD at [facility] Spine Creation Date: 03/30/2025 Referral Reasons: -- Referral Order: AMB REFERRAL TO PHYSICAL THERAPY Time In/Out: 8:44 am / 9:33 am (49 min) Medication Changes: None Pain: 9 Location: neck Description: Pain is described as aching, dull, sharp, uncomfortable, and variable intensity Subjective Pt reports he had about 20 min of relief after last rx. Objective: FOTO Score & PSFS FOTO??: (1-100) Initial 04/09/2025 Re-Assess Score (Predicted) 34 (54) PSFS: Patient will be able to... (0-10) Early eating 3 Grass cutting 3 Picking something up from the floor 2 Treatment Evaluation. AROM: Flex 45 Ext 45 R rot 50 L rot 45 R sb 15 L sb 10 Seated vertebral artery test: negative STM gentle PRO to c-spine with gentle stretching and light traction x 20 minutes E-stim IFC with cold pack x 20 minutes patient semi-reclined HEP Therapeutic Exercise: x 0 minutes Manual Therapy: x 20 minutes Modalities: x 20 minutes Total Timed Treatment: x 20 minutes Assessment Pt tolerated rx well. Therapist was about to perform some light traction this session. Goals Short Term Goals: (set for 2 weeks) Update/Status Patient will be independent with HEP in order to promote long-term health and reduce risk for injury. [x] Unmet [] Progressing [] Met Patient's cervical AROM will increase to WFLs to allow for safe return to functional adls without issue. [x] Unmet [] Progressing [] Met Assisted Goals: (set for 8 weeks) Update/Status Patient's [...] [x] Unmet [] Progressing [] Met Plan [x]Continue per plan of care [] Alter current plan (see comments) [x] Plan of care initiated [] Hold pending MD visit [] Discharge Comments: This note to serve as a discharge if the patient does not return. Electronically signed by: Signed: Moy Seaman PTA Date: 04/25/2025 Charges: MANUAL x 1, ESTIM, COLD documented in this encounter Plan of Treatment Not on file documented as of this encounter Goals Goal Patient Goal Type Associated Problems Recent Progress Patient-Stated? Author Blood Pressure < 140/90 Blood Pressure 115/68(02/21 8:06 AM EDT) No Koki Garcia, DO Maintain a healthy diet, exercise regularly and maintain an ideal body weight General No Noa Camarillo LPN Patient will complete [facility] Financial assistance application and mail in by the end of December General Yes Nereida Boss RN Patient will utilize [employer] and attend his appointment January 2023 to apply for disability/insur [facility] Yes Nereida Boss RN Stay Tobacco Free Lifestyle No Noa Camarillo LPN documented as of this encounter Visit Diagnoses Not on filedocumented in this encounter Care Teams Welding Machine Operator Resistance Relationship Specialty Start Date End Date Chetan Yao MD [address] [place] [phone] PCP - General Family Medicine 10/17/13 documented as of this encounter
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
--- OUTSIDE RECORDS SUMMARY | 2025-05-04 06:27 | XMS_ITS | Encounter Summary ---
Author Organization [place] [address] Care Team Providers Care Weight Loss Physician Name Role Phone Chetan Yao MD Primary Care Provider [phone] Reason for Visit * Physical Therapy (Routine) - Pending Review Specialty Diagnoses / Procedures Referred By Otf linares Referred To Contact Physical Therapy Diagnoses Cervical spondylosis Timo Rivas MD [address] [place] [address] Phone: tel: fax: [facility] Physical Therapy [address] [address] Phone: tel: fax: Referral ID Status Reason Start Date Expiration Date V isits Requested Visits Authorized [id number] Pending Review 03/30/2025 03/30/2026 11 11 Encounter Details Date Type Department Care Team (Latest Contact Info) Description 05/04/2025 7:27 AM EDT - 05/04/2025 11:59 PM EDT Hospital Encounter [facility] Physical Therapy [address] [phone] Moy Seaman PTA Discharge Disposition: Home or [...] Date Recorded PHQ-2 Total Score 0 02/21/2025 [facility] - Occupational Stress [...] 30 Tablet 11 03/26/2022 Blood Pressure Monitor [facility] KitIndications:Ess ential hypertension 1 Each by [facility]Non-Dr ug; Combo Route) route daily. 1 Kit [...] this encounter Progress Notes * Moy Seaman, FISH PACKER - 05/04/2025 7:30 AM EDT Images from the original note were not included. Physical Therapy Treatment Note Patient Name: Fernandez Norton : 1970 Visit #: 4 Onset Date: 10/07/24 Diagnosis: Cervical spondylosis Restrictions/Precautions: [place] Physician: Rob OLIVA Follow Up: prn Evaluation Date: 04/09/2025 Reassessment Due: 05/09/25 Primary Insurance: MEDICARE REPLACEMENT/[employer] DUAL ACCESS HMO D-SNP Secondary Insurance: [employer] [facility] [id number] [facility] Insurance Authorization: AMB REFERRAL TO PHYSICAL THERAPY Authorized (03/30/2025-03/30/2026) Visits Requested Visits Authorized Visits Completed Visits Scheduled 11 11 3 3 Details Referral ID: [id number] Authorization Status Reason: Received Carrier Authorization Authorization Comments: -- Referred To: MAD[facility] B[facility]GES PT Referred By: Timo Rivas MD at [facility], [facility] Spine Creation Date: 03/30/2025 Referral Reasons: -- Referral Order: AMB REFERRAL TO PHYSICAL THERAPY Time In/Out: 7:27 am / 8:14 am (47 min) Medication Changes: None Pain: 9 Location: neck Description: Pain is described as aching, dull, sharp, uncomfortable, and variable intensity Subjective I over did it last night helping train a coon-dog. Pt reported 10/10 initially. Objective: FOTO Score & PSFS FOTO??: (1-100) Initial 04/09/2025 Re-Assess Score (Predicted) 34 (54) PSFS: Patient will be able to... (0-10) Lindsay eating 3 Grass cutting 3 Picking something [...] 20 minutes Assessment Pt tolerated rx well. Temporary relief with treatment. Goals Short Term Goals: (set for 2 weeks) Update/Status Patient will be independent with HEP in order to promote long-term health and reduce risk for injury. [x] Unmet [] Progressing [] Met Patient's cervical AROM will increase to WFLs to allow for safe return to functional adls without issue. [x] Unmet [] Progressing [] Met Penitentiary Goals: (set for 8 weeks) Update/Status Patient's [...] signed by: Signed: Moy Seaman PTA Date: 05/04/2025 Charges: MANUAL x 1, ESTIM, ICE documented in this encounter Plan of Treatment Not on file documented as of this encounter Goals Goal Patient Goal Type Associated Problems Recent Progress Patient-Stated? Author Blood Pressure < 140/90 Blood Pressure 115/68(02/21 8:06 AM EDT) No Koki Garcia, DO Maintain a healthy diet, exercise regularly and maintain an ideal body weight General No Noa Camarillo LPN Patient will complete [place] Financial assistance application and mail in by the end of December General Yes Nereida Boss RN Patient will utilize [facility] ([facility]) and attend his appointment January 2023 to apply for disability/insur [facility] Yes Nereida Boss RN Stay Tobacco Free Lifestyle No Noa Camarillo LPN documented as of this encounter Visit Diagnoses Not on filedocumented in this encounter Care Teams Weight Loss Physician Relationship Specialty Start Date End Date Chetan Yao MD [address] [place] [phone] PCP - General Family Medicine 10/17/13 documented as of this encounter
--- OUTSIDE RECORDS SUMMARY | 2025-05-09 12:06 | XMS_ITS | Encounter Summary ---
Author Organization [facility] [place] [address] Care Team Providers Care Family Service Center Director Name Role Phone Chetan Yao MD Primary Care Provider [phone] Reason for Visit * Physical Therapy (Routine) - Pending Review Specialty Diagnoses / Procedures Referred By Otf linares Referred To Contact Physical Therapy Diagnoses Cervical spondylosis Timo Rivas MD [address] [place] [address] Phone: tel: fax: [facility] Physical Therapy [address] [address] Phone: tel: fax: Referral ID Status Reason Start Date Expiration Date V isits Requested Visits Authorized [id number] Pending Review 03/30/2025 03/30/2026 11 11 Encounter Details Date Type Department Care Team (Latest Contact Info) Description 05/09/2025 1:06 PM EDT - 05/09/2025 11:59 PM EDT Hospital Encounter [facility] Physical Therapy [address] [id number] Miguel Mccullough, SHAYLEE Discharge Disposition: Home or Self Care Social [...] Date Recorded PHQ-2 Total Score 0 02/21/2025 [facility] of Occupat ional [facility] - Occupational Stress Questionnaire Answer Date Recorded [...] by mouth daily. 30 Tablet 11 03/26/2022 atorvastatin (LIPITOR) 40 mg Oral Tablet Take 1 Tablet by mouth daily. 100 Tablet 2 05/11/2025 Blood Pressure Monitor [facility] [place] [place] KitIndications:Ess ential hypertension 1 Each by [facility] [place] [place].(Non-Dr ug; Combo Route) route daily. 1 Kit 03/30/2022 lisinopriL (PRINIVIL;ZESTRIL) 20 mg Oral Tablet tablet Take 1 Tablet by mouth daily. 100 Tablet 2 05/11/2025 metoprolol succinate (TOPROL-XL) 25 mg Oral Tablet Sustained Release 24 hr Take 1 Tablet by mouth once daily. 100 Tablet 2 05/11/2025 atorvastatin (LIPITOR) 40 mg Oral Tablet Take [...] documented in this encounter Progress Notes * Miguel Mccullough, PT - 05/09/2025 1:30 PM EDT Images from the original note were not included. Physical Therapy Reassessment Note Patient Name: Fernandez Norton : 1970 Visit #: 5 Onset Date: 10/07/24 Diagnosis: Cervical spondylosis Restrictions/Precautions: [place] Physician: Rob OLIVA Follow Up: prn Evaluation Date: 04/09/2025 Reassessment Due: 05/09/25 Primary Insurance: MEDICARE REPLACEMENT/WELL[employer] DUAL ACCESS HMO D-SNP Secondary Insurance: [place] [id number] [facility] Insurance Authorization: AMB REFERRAL TO PHYSICAL THERAPY Authorized (03/30/2025-03/30/2026) Visits Requested Visits Authorized Visits Completed Visits Scheduled 11 11 5 1 Details Referral ID: [id number] Authorization Status Reason: Received Carrier Authorization Authorization Comments: -- Referred To: MADY BORGES PT Referred By: Timo Rivas MD at [facility] Creation Date: 03/30/2025 Referral Reasons: -- Referral Order: AMB REFERRAL TO PHYSICAL THERAPY Time In/Out: 1:33/1:55 Timed Treatment Minutes: 0 Total Timed Code Treatment Minutes: 0 Untimed Treatment Minutes: Hot/cold packs and Unattended E-stim Total Treatment Minutes: 20 Medication Changes: Pain: 6 Location: neck Description: Pain is described as aching, dull, sharp, uncomfortable, and variable intensity Subjective The neck is sore and painful today. When you guys work on it it makes it hurt worse. Objective: neck Treatment Evaluation. AROM: Flex 45 Ext 45 R rot 50 L rot 45 R sb 15 L sb 10 Seated vertebral artery test: negative E-stim IFC with MH x 20 minutes patient semi-reclined MH to back x 20 minutes HEP Therapeutic Exercise: x 0 minutes Manual Therapy: x 0 minutes Modalities: x 20 minutes Total Timed Treatment: x 20 minutes Assessment The patient tolerated RX with a reported decrease in pain. Goals Short Term Goals: (set for 2 weeks) Update/Status Patient will be independent with HEP in order to promote long-term health and reduce risk for injury. [x] Unmet [] Progressing [] Met Patient's cervical AROM will increase to WFLs to allow for safe return to functional adls without issue. [x] Unmet [] Progressing [] Met Long-Term Goals: (set for 8 weeks) Update/Status Patient's [...] does not return. Electronically signed by: Signed: Miguel Mccullough, SHAYLEE Date: 05/09/2025 documented in this encounter Plan of Treatment Not on file documented as of this encounter Goals Goal Patient Goal Type Associated Problems Recent Progress Patient-Stated? Author Blood Pressure < 140/90 Blood Pressure 115/68(02/21 8:06 AM EDT) No Koki Garcia, DO Maintain a healthy diet, exercise regularly and maintain an ideal body weight General No Noa Camarillo LPN Patient will complete [place] Financial assistance application and mail in by the end of December General Yes Nereida Boss RN Patient will utilize [employer] and attend his appointment January 2023 to apply for disability/insur [facility] Yes Nereida Boss RN Stay Tobacco Free Lifestyle No Noa Camarillo LPN documented as of this encounter Visit Diagnoses Not on filedocumented in this encounter Care Teams Family Service Center Director Relationship Specialty Start Date End Date Chetan Yao MD [address] [place], [place] [phone] PCP - General Family Medicine 10/17/13 documented as of this encounter
--- OUTSIDE RECORDS SUMMARY | 2025-05-11 09:54 | XMS_ITS | Encounter Summary ---
Author Organization [place] [address] Care Team Providers Care Heat Treat Worker Name Role Phone Chetan Yao MD Primary Care Provider [phone] Reason for Visit * Physical Therapy (Routine) - Pending Review Specialty Diagnoses / Procedures Referred By Otf linares Referred To Contact Physical Therapy Diagnoses Cervical spondylosis Timo Rivas MD [address] [place] [address] Phone: tel: fax: [facility] Physical Therapy [address] [address] Phone: tel: fax: Referral ID Status Reason Start Date Expiration Date V isits Requested Visits Authorized [id number] Pending Review 03/30/2025 03/30/2026 11 11 Encounter Details Date Type Department Care Team (Latest Contact Info) Description 05/11/2025 10:54 AM EDT - 05/11/2025 11:59 PM EDT Hospital Encounter [facility] Physical Therapy [address] [id number] Moy Seaman PTA Discharge Disposition: Home or [...] Date Recorded PHQ-2 Total Score 0 02/21/2025 [facility] of Occupat ional Health - Occupational Stress [...] of Discharge amLODIPine (NORVASC) 5 mg Oral TabletIndications:E ssential hypertension Take 1 Tablet by mouth daily. 90 Tablet 3 11/08/2023 aspirin (ASPIRIN) 81 mg Oral Tablet, ChewableIndications :Right arm weakness Take 1 Tablet by mouth daily. 30 Tablet 11 03/26/2022 atorvastatin (LIPITOR) 40 mg Oral Tablet Take 1 Tablet by mouth daily. 100 Tablet 2 05/11/2025 Blood Pressure Monitor [facility] [place] KitIndications:Esse ntial hypertension 1 Each by [facility] [place].(Non-Dr ug; Combo Route) route daily. 1 Kit 03/30/2022 lisinopriL (PRINIVIL;ZESTRIL) 20 mg Oral Tablet tablet Take 1 Tablet by mouth daily. 100 Tablet 2 05/11/2025 metoprolol succinate (TOPROL-XL) 25 mg Oral Tablet Sustained Release 24 hr Take 1 Tablet by mouth once daily. 100 Tablet 2 05/11/2025 documented as of this encounter Discharge Disposition Disposition Code Departure Means Destination Home or Self Care documented in this encounter Progress Notes * Moy Seaman PTA - 05/11/2025 11:00 AM EDT Images from the original note were not included. Physical Therapy Treatment Note Patient Name: Fernandez Norton : 1970 Visit #: 6 Onset Date: 10/07/24 Diagnosis: Cervical spondylosis Restrictions/Precautions: [place] Physician: Rob OLIVA Follow Up: prn Evaluation Date: 04/09/2025 Reassessment Due: 05/09/25 Primary Insurance: MEDICARE REPLACEMENT/WELLCARE DUAL ACCESS HMO D-SNP Secondary Insurance: [employer] [facility] [id number] [facility] Insurance Authorization: AMB REFERRAL TO PHYSICAL THERAPY Authorized (03/30/2025-03/30/2026) Visits Requested Visits Authorized Visits Completed Visits Scheduled 11 11 6 -- Details Referral ID: [id number] Authorization Status Reason: Received Carrier Authorization Authorization Comments: -- Referred To: MADY BORGES PT Referred By: Timo Rivas MD at [facility] Creation Date: 03/30/2025 Referral Reasons: -- Referral Order: AMB REFERRAL TO PHYSICAL THERAPY Time In/Out: 11:00 am / 11:29 (29 min) Medication Changes: None Pain: 7 Location: neck Description: Pain is described as aching, dull, sharp, uncomfortable, and variable intensity Subjective Pt reports today is better than yesterday (sun is out and no rain). Objective: FOTO Score & PSFS FOTO??: (1-100) Initial 04/09/2025 Re-Assess Score (Predicted) 34 (54) PSFS: Patient will be able to... (0-10) [place] eating 3 Grass cutting 3 Picking something [...] 20 minutes Assessment Pt tolerated rx well. ESTIM only at the request of pt, secondary to manual makes him feel worse. Goals Short Term Goals: (set for 2 weeks) Update/Status Patient will be independent with HEP in order to promote long-term health and reduce risk for injury. [x] Unmet [] Progressing [] Met Patient's cervical AROM will increase to WFLs to allow for safe return to functional adls without issue. [x] Unmet [] Progressing [] Met Visitor Services Coordinator Goals: (set for 8 weeks) Update/Status Patient's [...] signed by: Signed: Moy Seaman PTA Date: 05/11/2025 Charges: OLAMIDE, LILI documented in this encounter Plan of Treatment Not on file documented as of this encounter Goals Goal Patient Goal Type Associated Problems Recent Progress Patient-Stated? Author Blood Pressure < 140/90 Blood Pressure 115/68(02/21 8:06 AM EDT) No Koki Garcia, DO Maintain a healthy diet, exercise regularly and maintain an ideal body weight General No Noa Camarillo LPN Patient will complete [place] Financial assistance application and mail in by the end of December General Yes Nereida Boss RN Patient will utilize [employer] and attend his appointment January 2023 to apply for disability/insur anc General Yes Nereida Boss RN Stay Tobacco Free Lifestyle No Noa Camarillo LPN documented as of this encounter Visit Diagnoses Not on filedocumented in this encounter Care Teams Heat Treat Worker Relationship Specialty Start Date End Date Chetan Yao MD [address] [place] [phone] PCP - General Family Medicine 10/17/13 documented as of this encounter
--- NOTE | 2025-06-14 11:23 | XR_ITS ---
FINAL REPORT TECHNIQUE: Chest PA & Lateral CLINICAL HISTORY: cough, chest congestion x 4 days, patient is a smoker COMPARISON: 01/06/2025 FINDINGS: 2 views of the chest were performed. The heart size is normal. The mediastinum is within normal limits. There is no acute cardiopulmonary process. There is mild pleural and parenchymal scarring in the costophrenic angles. There are no pleural effusions. There is no pneumothorax. The bony thorax appears intact. IMPRESSION: No acute cardiopulmonary process. Reviewed, Interpreted and Dictated by Fadi Funk MD Transcribed by Maritza Powers Authenticated and [facility]
--- OUTSIDE RECORDS SUMMARY | 2025-06-14 11:48 | XMS_ITS | Encounter Summary ---
Author Organization [place] [place] [address] Care Team Providers Care Ordnance Handler Name Role Phone Chetan Yao MD Primary Care Provider [phone] Encounter Details Date Type Department Care Team (Latest Contact Info) Description 02/21/2025 Results Follow-Up SEP Oscar [facility] [place] [address] Chetan Yao MD [place] [facility] [place] [address] PROSTATE SPECIFIC ANTIGEN (SCREENING), LIPID SCREEN, COMPREHENSIVE METABOLIC PANEL, Additional followed-up results: 2 Social History Tobacco Use Types Packs/Day Years [...] Date Recorded PHQ-2 Total Score 0 02/21/2025 [facility] [place] of Occupat ional Health - Occupational Stress [...] as of this encounter Functional Status * Question Answer Date of Assessment Author Is the person deaf or does he/she have serious difficulty hearing? No 02/21/2025 7:36 AM Mei Ayers CCMA Is the person blind or does he/she have serious difficulty seeing even when wearing glasses? No 02/21/2025 7:36 AM Mei Ayers CCMA Does this person have seriou s difficulty walking or climbing stairs? No 02/21/2025 7:36 AM Mei Ayers CCMA Does this person have diffic ulty dressing or bathing? No 02/21/2025 7:36 AM Mei Ayers CCMA * Is the person deaf or does [...] No 02/21/2025 7:36 AM EDT Alexus Cha taylor SUNITA * PHQ-9 Total Score Answer Date of Assessment Author 0 02/21/2025 7:37 AM EDT Alexus Cha taylor SUNTIA * Question Answer Date of Assessment Author Little interest or pleasure in doing things 0 02/21/2025 7:37 AM EDT Starla GEE HurleyA Feeling down, depressed, or hopeless 0 02/21/2025 7:37 AM EDT StarlaMei CCMA PHQ-2 Total Score 0 02/21/2025 7:37 AM EDT Starla Mei GEEA * PHQ-2 Total Score Answer Date of Assessment Author 0 02/21/2025 7:37 AM EDT Alexus Cha taylor SUNITA documented as of this encounter Mental Status * Question Answer Entry Date Author Because of a physical, menta l or emotional condition, does this person have difficulty doing errands alone such as visiting a doctor's office or shopping? No 02/21/2025 7:36 AM EDT StarlaMei CCMWhitney Because of a physical, menta l or emotional condition, does this person have serious difficulty concentrating, remembering or making decisions? No 02/21/2025 7:36 AM EDT StarlaMei CCMWhitney * Because of a physical, mental or emotional condition, does this person have serious difficulty concentrating, remembering or making decisions? Answer Entry Date Author No 02/21/2025 7:36 AM EDT Starla Alexus taylor SUNITA documented in this encounter Progress Notes * Nixon Healy MD - 02/22/2025 7:47 AM EDT Labs all good/normal. documented in this encounter Plan of Treatment Not on file documented as of this encounter Goals Goal Patient Goal Type Associated Problems Recent Progress Patient-Stated? Author Blood Pressure < 140/90 Blood Pressure 115/68(02/21 8:06 AM EDT) No Koki Garcia, DO Maintain a healthy diet, exercise regularly and maintain an ideal body weight General No Noa Camarillo LPN Patient will complete [place] Financial assistance application and mail in by the end of December General Yes Nereida Boss RN Patient will utilize savings cards and attend his appointment January 2023 to apply for disability/insur [facility] Yes Nereida Boss RN Stay Tobacco Free Lifestyle No Noa Camarillo LPN documented as of this encounter Visit Diagnoses Not on filedocumented in this encounter Care Teams Ordnance Handler Relationship Specialty Start Date End Date Chetan Yao MD [address] [place], [place] [phone] PCP - General Family Medicine 10/17/13 documented as of this encounter
--- OUTSIDE RECORDS SUMMARY | 2025-06-14 11:48 | XMS_ITS | Encounter Summary ---
Author Organization [facility] [place] [address] Care Team Providers Care Housing Specialist Name Role Phone Chetan Yao MD Primary Care Provider [phone] Encounter Details Date Type Department Care Team (Late st Contact Info) Description 04/04/2025 Orders Only [facility] Physical Therapy [address] [place] [address] Miguel Mccullough, PT Social History Tobacco Use Types Packs/Day Years [...] Date Recorded PHQ-2 Total Score 0 02/21/2025 [facility] [place] of Occupat ional Health - Occupational Stress [...] 7:36 AM EDT Alexus Cha CCMA * Because of a physical, mental or emotional condition, does this person have difficulty doing errands alone such as visiting a doctor's office or shopping? Answer Date of Assessment Author No 02/21/2025 7:36 AM EDT Alexus Cha CCMA documented as of this encounter Mental Status * Because of a physical, mental or emotional condition, does this person have serious difficulty concentrating, remembering or making decisions? Answer Entry Date Author No 02/21/2025 7:36 AM EDAlexus Lanza CCMA documented in this encounter Plan of Treatment Not on file documented as of this encounter Goals Goal Patient Goal Type Associated Problems Recent Progress Patient-Stated? Author Blood Pressure < 140/90 Blood Pressure 115/68(02/21 8:06 AM EDT) No Koki Garcia, DO Maintain a healthy diet, exercise regularly and maintain an ideal body weight General No Noa Camarillo LPN Patient will complete [place] Financial assistance application and mail in by the end december General Yes Nereida Boss RN Patient will utilize [employer] cards and attend his appointment January 2023 to apply for disability/insur isael General Yes Nereida Boss, RN Stay Tobacco Free Lifestyle No Noa Camarillo LPN documented as of this encounter Visit Diagnoses Not on filedocumented in this encounter Care Teams Housing Specialist Relationship Specialty Start Date End Date Chetan Yao MD [address] [place] [phone] PCP - General Family Medicine 10/17/13 documented as of this encounter
--- OUTSIDE RECORDS SUMMARY | 2025-06-14 11:49 | XMS_ITS | Clinical Summary ---
Author Organization [facility] Phone Care Team Providers Care Dredge Pipe Installer Name Role Phone Gabriela Dave Unavailable Conditions or Problems No information available. Medications No information available. Medications Administered No information available. Allergies, Adverse Reactions, Alerts No information available. Results No information available. Plan of Care No information available. Procedures No information available. Vital Signs No information available. Immunizations No information available. Advance Directives No information available.
--- OUTSIDE RECORDS SUMMARY | 2025-06-14 11:49 | XMS_ITS | Encounter Summary ---
Author Organization [facility] [place] [address] Care Team Providers Care Paint Specialist Name Role Phone Chetan Yao MD Primary Care Provider [phone] Reason for Visit * Reason Onset Date Comments Prior Authorization 05/01/2025 TPIs cervica l Encounter Details Date Type Department Care Team (Late st Contact Info) Description 05/01/2025 Telephone [facility]P [facility] [address] [place] [address] Thao Ryan PA [address] [place] [address] Prior Authorization (TPIs cervical ) Social History Tobacco Use Types Packs/Day Years [...] Date Recorded PHQ-2 Total Score 0 02/21/2025 [facility] [place] of Occupat ional Health - Occupational Stress [...] Entry Date Author No 02/21/2025 7:36 AM Alexus Ayers CCMA documented in this encounter Miscellaneous Notes * Telephone Encounter - Sarah Romero Scribe - 05/31/2025 12:44 PM EST Called patient to schedule TPIs. Patient is wanting to hold off for now. Patient states that he is still trying to get an MRI. Will call back once ready to schedule. * Telephone Encounter - Lisset Acosta - 05/11/2025 1:32 PM EDT Attempted to schedule TPI's. NA and unable to LVM. VM not set up. * Telephone Encounter - Sarah Romero Scribe - 05/02/2025 8:55 AM EDT Auth complete. Schedule TPIs with MJ in . Auth Dates: 05/01/2025 - 06/30/2025 for 1 Visit * Telephone Encounter - Sarah Romero Scribe - 05/01/2025 11:25 AM EDT Auth requested and will schedule once complete. MJ in * Telephone Encounter - Sarah Romero Scribe - 05/01/2025 11:24 AM EDT ----- Message from Paradi Operator Allison sent at 04/30/2025 8:45 AM EDT ----- Regarding: TPIs please get auth. for TPIs cervical, thank you! documented in this encounter Plan of Treatment Not on file documented as of this encounter Goals Goal Patient Goal Type Associated Problems Recent Progress Patient-Stated? Author Blood Pressure < 140/90 Blood Pressure 115/68(02/21 8:06 AM EDT) No Garcia, Koki R, DO Maintain a healthy diet, exercise regularly and maintain an ideal body weight General No oNa Camarillo LPN Patient will complete [place] Financial assistance application and mail in by the end of December General Yes Nereida Boss RN Patient will utilize [employer] and attend his appointment January 2023 to apply for disability/insur [facility] Yes Nereida Boss RN Stay Tobacco Free Lifestyle No Noa Camarillo LPN documented as of this encounter Visit Diagnoses Not on filedocumented in this encounter Care Teams Paint Specialist Relationship Specialty Start Date End Date Chetan Yao MD [address] [place], [place] [phone] PCP - General Family Medicine 10/17/13 documented as of this encounter
--- OUTSIDE RECORDS SUMMARY | 2025-06-14 11:49 | XMS_ITS | Encounter Summary ---
Author Organization [place] [address] Care Team Providers Care Public Relations Assistant Name Role Phone Chetan Yao MD Primary Care Provider [phone] Reason for Visit * Reason Comments Medication Refill Encounter Details Date Type Department Care Team (Late st Contact Info) Description 05/09/[address] [facility] [place] [address] [place] [address] Chetan Yao MD [employer] [facility] [place] [address] Medication Refill Social History Tobacco Use [...] Date Recorded PHQ-2 Total Score 0 02/21/2025 [facility] [place] of Occupat ional Health - Occupational Stress [...] Alexus Ayers CCMA documented in this encounter Ordered Prescriptions Prescription Sig Dispense Quantity Refills Last Filled Start Date End Date metoprolol succinate (TOPROL-XL) 25 mg Oral Tablet Sustained Release 24 hr Take 1 Tablet by mouth once daily. 100 Tablet 2 05/11/2025 atorvastatin (LIPITOR) 40 mg Oral Tablet Take 1 Tablet by mouth daily. 100 Tablet 2 05/11/2025 lisinopriL (PRINIVIL;ZESTRIL) 20 mg Oral Tablet tablet Take 1 Tablet by mouth daily. 100 Tablet 2 05/11/2025 documented in this encounter Miscellaneous Notes * Telephone Encounter - Hien Lind CPhT - 05/11/2025 6:11 AM EDT Atorvastatin Future Visit: N/A Last Assessed Visit: 02/21/25 (AWV or similar dx) Follow-Up Date: 02/21/26 All protocols passed. Refills approved and sent to requesting pharmacy. Routed to PN Pool if an appointment is needed. Lisinopril Future Visit: N/A Last Assessed Visit: 02/21/25 (AWV or similar dx) Follow-Up Date: 02/21/26 All protocols passed. Refills approved and sent to requesting pharmacy. Routed to PN Pool if an appointment is needed. Metoprolol Future Visit: N/A Last Assessed Visit: 02/21/25 (AWV or similar dx) Follow-Up Date: 02/21/26 All protocols passed. Refills approved and sent to requesting pharmacy. Routed to PN Pool if an appointment is needed. documented in this encounter Plan of Treatment Not on file documented as of this encounter Goals Goal Patient Goal Type Associated Problems Recent Progress Patient-Stated? Author Blood Pressure < 140/90 Blood Pressure 115/68(02/21 8:06 AM EDT) No Koki Garcia, DO Maintain a healthy diet, exercise regularly and maintain an ideal body weight General No Noa Camarillo LPN Patient will complete [place] Financial assistance application and mail in by the end of December General Yes Nereida Boss RN Patient will utilize [employer] and attend his appointment January 2023 to apply for disability/insur [facility] Yes Nereida Boss RN Stay Tobacco Free Lifestyle No Noa Camarillo LPN documented as of this encounter Visit Diagnoses Not on filedocumented in this encounter Discontinued Medications Medication Sig Discontinue Reason Start Date End Da te metoprolol succinate (TOPROL-XL) 25 mg Oral Tablet Sustained Release 24 hr TAKE 1 TABLET BY MOUTH ONCE DAILY 10/18/2024 05/11/2025 atorvastatin (LIPITOR) 40 mg Oral Tablet Take 1 Tablet by mouth daily. 04/10/2025 05/11/2025 lisinopriL (PRINIVIL;ZESTRIL) 20 mg Oral Tablet tablet Take 1 Tablet by mouth daily. * MUST MAKE APPT* 04/10/2025 05/11/2025 documented as of this encounter Care Teams Public Relations Assistant Relationship Specialty Start Date End Date Chetan Yao MD [address] [place], [place] [phone] PCP - General Family Medicine 10/17/13 documented as of this encounter
--- OUTSIDE RECORDS SUMMARY | 2025-06-14 11:49 | XMS_ITS | Clinical Summary ---
Author Organization [facility] Address [address] [place] [address] Phone Care Team Providers Care Legislative Aide Name Role Phone Chetan Yao MD Primary Care Provider [phone] Allergies Active Allergy Reactions Criticality Noted Date Comments Radha Knox High 09/26/2010 Medications aspirin (ASPIRIN) 81 mg Oral Tablet, ChewableIndicatio ns:Right arm weakness Take 1 Tablet by mouth daily. 30 Tablet 11 03/26/2022 Active Blood Pressure Monitor [facility] KitIndications:Es sential hypertension 1 Each by [facility].(Non-D rug; Combo Route) route daily. 1 Kit 03/30/2022 Active amLODIPine (NORVASC) 5 mg Oral TabletIndications :Essential hypertension Take 1 Tablet by mouth daily. 90 Tablet 3 11/08/2023 Active lisinopriL (PRINIVIL;ZESTRIL ) 20 mg Oral Tablet tablet Take 1 Tablet by mouth daily. 100 Tablet 2 05/11/2025 Active atorvastatin (LIPITOR) 40 mg Oral Tablet Take 1 Tablet by mouth daily. 100 Tablet 2 05/11/2025 Active metoprolol succinate (TOPROL-XL) 25 mg Oral Tablet Sustained Release 24 hr Take 1 Tablet by mouth once daily. 100 Tablet 2 05/11/2025 Active Active Problems Patient Care Coordination No te Formatting of this note migh t be different from the original. [facility] - Timo Rivas MD Interventional Pain Protocol: Peggy report completed (EVERY 3 MONTHS) ( 04/30/25 ) Pharmacy: [facility] [place] [address] - [address] [facility] [phone] Problem Noted Date Diagnosed Date Marijuana use [...] your drinking? no Ever need an eye geochemical manager in the morning? no Screening for depression [...] to get PEGGY UDS periodically Pill counts Assessment & Plan (02/21/2025 8:40 AM EDT): Chronic midline posterior neck pain 05/13/2017 Overview [...] No acute fracture or dislocation cervical spine. Cervical spondylosis 05/13/2017 Overview (11/25/2023): Failed UDS. Had hydrocodone in system. Admitted to buying them off the street and did not report that to us. He is aware that we will no longer provide controled substances. Chronic intermittent pain. Uses gabapentin and tylenol prn. Assessment & Plan (02/21/2025 8:40 AM EDT): Orders: [facility]B REFERRAL TO [facility] Tobacco use disorder 04/12/2012 Overview (05/13/2017): stop Fatty tumor 04/12/2012 Overview (08/17/2018): stable Resolved Problems Problem Noted Date Diagnosed Date Resolved Date Onychomycosis of toenail 04/27/201802/2020 Overview (08/17/2018): S/p antifungal tx Sebaceous cyst 04/12/2012 08/17/2018 Encounters Date Type Department Care Team Description 05/11/2025 10:54 AM EDT - 05/11/2025 11:59 PM EDT Hospital Encounter [facility] Physical Therapy Jalyn [place], [place] [address] Moy Seaman, PHOTO FINISHER Discharge Disposition: Home or Self Care 05/09/2025 1:06 PM EDT - 05/09/2025 11:59 PM EDT Hospital Encounter [facility] Physical Therapy Jalyn [place], [place] [address] Miguel Mccullough, PT Discharge Disposition: Home or Self Care 05/09/2025 Refill [facility] [address] [place] [address] Chetan Yao MD Medication Refill 05/04/2025 7:27 AM EDT - 05/04/2025 11:59 PM EDT Hospital Encounter [facility] Physical Therapy Jalyn B[place]GES, [place] [address] Moy Seaman, PHOTO FINISHER Discharge Disposition: Home or Self Care 05/01/2025 Telephone [facility] [address] [place] [id number] Thao Ryan PA Prior Authorization (TPIs cervical ) 04/30/2025 8:45 AM EDT Office Visit [facility] [address] [place] [address] Thao Ryan PA Cervical spondylosis (Primary Dx) 04/25/2025 8:44 AM EDT - 04/25/2025 11:59 PM EDT Hospital Encounter [facility] Physical Therapy Jalyntyler BORGES, [place] [address] Moy Seaman, WILIAN Discharge Disposition: Home or Self Care 04/18/2025 10:17 AM EDT - 04/18/2025 11:59 PM EDT Hospital Encounter [facility] Physical Therapy Jalyn B[place]ES, [place] [address] Moy Seaman, PHOTO FINISHER Discharge Disposition: Home or Self Care 04/09/2025 12:56 PM EDT - 04/09/2025 11:59 PM EDT Hospital Encounter [facility] Physical Therapy Jalyn [place], [place] [address] Miguel Mccullough, PT Discharge Disposition: Home or Self Care 04/09/2025 Plan of Care Documentation [facility] Physical Therapy Jalyn [place], [place] [address] 04/09/2025 Refill [facility] [address] [place] [phone] Chetan Yao MD Medication Refill 04/04/2025 Telephone [facility] [address] [place] [address] Timo Rivas MD Prior Authorization (CERVICAL SPINE MRI) 04/04/2025 Orders Only [facility] Physical Therapy Jalyn [place], [place] [address] Miguel Mccullough, PT 03/30/2025 8:20 AM EDT Office Visit [facility] [address] [place] [phone] Timo Rivas MD Cervical spondylosis (Primary Dx) 03/28/2025 Patient Outreach [facility] [address] [place] [phone] Danae Mirza CPhT Medication Management (Instructional Support Assistant Steel Plate Printer: lacquer sizer [phone]/) 03/26/2025 Patient Outreach [facility] [address] [place] [address] Chetan Yao MD Results (cologuard) from Last 3 Months Immunizations Immunization Administration [...] Date Recorded PHQ-2 Total Score 0 02/21/2025 [facility] - Occupational Stress [...] on file Sexual Orientation Not on file Last Filed Vital Signs Vital Sign Reading Time Taken Comments Blood Pressure 115/68 02/21/2025 8:06 AM EDT Pulse 90 04/30/2025 8:29 AM EDT Temperature 36.7 C (98 F) 02/21/2025 8:06 AM EDT Respiratory Rate 20 04/30/2025 8:29 AM EDT Oxygen Saturation 98% 04/30/2025 8:29 AM EDT Inhaled Oxygen Concentration - - Weight 82.1 kg (181 lb) 04/30/2025 8:29 AM EDT Height 177.8 cm (5' 10 ) 04/30/2025 8:29 AM EDT Body Mass Index 25.97 04/30/2025 8:29 AM EDT Plan of Treatment Health Maintenance Due Date Last Done Comments Hepatitis B Vaccine (1 of 3 - 19+ 3-dose series) 02/25/1988 Colonoscopy 2014 FIT 2014 Sigmoidoscopy 2014 Virtual Colonography 2014 Zoster (1 of 2) 2019 Low Dose Lung Cancer Screening 11/21/2024 11/22/2023 COVID-19 Vaccine ( season) 2025 Influenza Vaccine (#1) 2025 7 (Declined), 09/27/2014 (Declined), 04/26/2012 Annual Wellness Exam 02/21/2026 02/21/2025, 01/24/20 16 Cologuard 03/21/2028 03/21/2025, 03/12, 03/09/2022, Additional history exists Colon Cancer Screening 03/21/2028 DTaP/TDaP/Td (3 - Td or Tdap) 01/01/2032 [...] No Noa Camarillo LPN Patient will complete [place] Financial assistance application and mail in by the end of December General Yes Nereida Boss RN Patient will utilize joiz and attend his appointment January 2023 to apply for disability/insur [facility] Yes Nereida Boss RN Stay Tobacco Free Lifestyle No Noa Camarillo LPN Procedures Procedure Name Priority Date/Time Associated Diagnosis Comments COLOGUARD Routine 03/21/2025 9:00 AM EDT Screening for colon cancer CT LUNG CANCER SCREENING LOW DOSE Routine 11/22/2023 4:20 PM EDT Cigarette smoker from Last 3 Months or Most Recently Relevant to Health Maintenance Results * COLOGUARD (03/21/2025 9:00 AM EDT) COLOGUARD CLINICAL REPORT Negative Negative [facility] Comment: The Cologuard (TM) test was performed on this specimen. NEGATIVE TEST RESULT. A negative Cologuard result [...] (Michael Molina al, N Engl J Med 2014;370(14):8203-9445) The normal value (reference range) for this assay is negative. COLOGUARD RE-SCREENING RECOMMENDATION: Periodic colorectal cancer screening is an important part of preventive healthcare for asymptomatic individuals at average risk for colorectal cancer. Following a negative Cologuard result, the [place] [employer] Society and U.S. Multi-Society Task Force screening guidelines recommend a Cologuard re-screening interval of 3 years. References: [place] [employer] Guideline for Colorectal Cancer Screening: https://www.cancer.org/cancer/xhxew-apqusm-tyxyur/zfckblyvq-gykxqnsgu-ekafucc/ac s-rec ommendations.html.; John Paul DK, Gamal CR, Mark NegronK, Colorectal Cancer Screening: Recommendations for Physicians and Patients from the U.S. Multi-Society Task Force on Colorectal Cancer Screening , Am J Gastroenterology 2017; 112:3712-9084. TEST DESCRIPTION: Composite algorithmic analysis of stool [...] Bonner et al, N Engl J Med 2014;370(14):5621-7740.) Cologuard may produce a false negative or false positive result (no colorectal cancer or precancerous polyp present at colonoscopy follow up). A negative Cologuard test result does not guarantee the absence of CRC or advanced adenoma (pre-cancer). The current Cologuard screening interval is every 3 years. ([place] [employer] Society and U.S. Multi-Society Task Force). Cologuard performance data in a 10,000 patient pivotal study using colonoscopy as the reference method can be accessed at the following location: www.Qustodian.CartiCure/results. Additional description of the Cologuard test process, warnings and precautions can be found at www.Visibiz.com. Stool 03/21/2025 9:00 AM EDT 03/22/2025 11:48 AM EDT us Nixon Healy MD [employer] - ORDERABLES Fin al Result [employer] [address] [place] [address], [facility] [employer] [address] [facility] [place] [address] * CT LUNG CANCER SCREENING LOW DOSE [...] contact the office of the ordering clinician. [email or web address] Narrative 11/22/2023 4:[address] LUNG CANCER SCREENING LOW DOSE 11/22/2023 4:20 PM CLINICAL HISTORY: Asymptomatic patient meeting NCCN high risk criteria for lung screening. F17.210-Nicotine dependence, cigarettes, [id number]-CM. COMPARISON: None. PROCEDURE COMMENTS: Noncontrast, low-dose, multidetector CT chest per department protocol. Interactive 3-D postprocessing done by the reviewing physician on a [employer] workstation, using Maximum intensity projections (MIPS) and [employer] LUNG CAD for improved lesion detection. Dawkins [...] nodule(s). Continued ANNUAL LOW-DOSE SCREENING CT SCAN ([id number]) suggested if age <78. Lung-RADS Modifier N/A: No Modifier Needed Procedure Note Chuck Cheatham MD - 11/22/2023 CT LUNG CANCER SCREENING LOW DOSE 11/22/2023 4:20 PM CLINICAL HISTORY: Asymptomatic patient meeting NCCN high risk criteria forlung screening. F17.210-Nicotine dependence, cigarettes,[id number]-CM. COMPARISON: None. PROCEDURE COMMENTS: Noncontrast, low-dose, multidetector CT chest perdepartment protocol. Interactive 3-D postprocessing done by the reviewing physicianon a [employer] workstation, using Maximum intensity projections (MIPS) and [employer] TV CAD for improved lesion detection. Dawkins images [...] nodule(s). Continued ANNUAL LOW-DOSE SCREENING CT SCAN ([place] [id number])suggested if age <78. Lung-RADS Modifier N/A: No Modifier Needed IMPRESSION: Unremarkable low-dose screening chest CT. RECOMMENDATION: Low Dose CT - 1 Yr A summary letter communicating these results will be mailed to thepatient's address of record. - Note: Radiology results need to be interpreted within a comprehensiveclinical context. If you have questions about the radiology report, please contactthe office of the ordering clinician. [email or web address] Chetan Yao MD IM CT ORDERABLES Final Res ult from Last 3 Months or Most Recently Relevant to Health Maintenance Insurance [employer] GENERIC WORKERS' COMP GENERIC WORKERS' COMP GENERIC WORKERS' COMP DUAL ACCESS O D-SNP Care Teams Legislative Aide Relationship Specialty Start Date End Date Chetan Yao MD [address] [place], [place] [phone] PCP - General Family Medicine 10/17/13
== END 2025-06-14 23:59 | disposition home or self-care (01) ==
LOC: RAD 11:20
PROVIDERS: PCP Internal Medicine Cardiovascular Disease; Visit Provider Student in an Organized Health Care Education/Training Program
DX: R05.9 Cough, unspecified (principal); R09.89 Other specified symptoms and signs involving the circulatory and respiratory systems
CPT/HCPCS: 71046